=== PATIENT | female | born 1975 | race African-American/Black ===

== ENCOUNTER 2018-10-01 13:54 | Observation (INO) | payer OTHER ==
[2018-10-01] MEDS ORDERED: IPRATROPIUM BROM 0.5MG/2.5ML ONE (14:45)
[2018-10-01] MEDS ORDERED: ALBUTEROL 2.5 MG/3 ML NEB SOL ONE (14:45)
[2018-10-01 14:46] LABS: Absolute Lymphocytes (CBC) 1.7 K/uL (0.7-4.9); Absolute Monocytes 0.6 K/uL (0.1-1.3); Absolute Neutrophil 5.5 K/uL (1.8-8.0); Basophils % 0.8 % (0-1.3); Eosinophils % 4.5 % (0-4.4); Hematocrit 39.3 % (36.0-45.0); Lymphocytes % 20.8 % (15.3-44.8); MPV 8.6 fL (7.6-11.3); Monocytes % 6.9 % (3.3-12.3); RBC Red Blood Cell Count 5.29 M/uL (3.86-4.86)
[2018-10-01 15:04] LABS: Albumin 3.2 g/dL (3.4-5.0); Bilirubin Direct 0.1 mg/dL (0-0.2); Bilirubin Total 0.4 mg/dL (0.2-1.0); Magnesium 2.2 mg/dL (1.8-2.4); Potassium 3.3 mmol/L (3.5-5.1); Protein, Total 7.7 g/dL (6.4-8.2); Troponin (Emerg Dept Use Only) 0.09 ng/mL (0.0-0.045)
--- NOTE | 2018-10-01 15:32 | RAD REPORT ---
EXAM DESCRIPTION: RAD - Chest Single View - 10/01/2018 2:32 pm CLINICAL HISTORY: Shortness of breath, chills COMPARISON: None. TECHNIQUE: AP portable chest image was obtained 1430 hours . FINDINGS: Lungs are clear. Heart and vasculature are normal. No measurable pleural effusion and no p neumothorax. No acute bony abnormality seen. No acute aortic findings suspected. IMPRESSION: No acute cardiopulmonary process.
[2018-10-01 15:56] LABS: Protime INR 1.08
[2018-10-01 16:23] LABS: Urine Blood TRACE (NEG); Urine Glucose NEGATIVE (NEG); Urine Protein 2+ (NEG); Urine Specific Gravity 1.025 (1.005-1.030)
[2018-10-01] MEDS ORDERED: LORazepam 2 MG/ML VIAL ONE (16:49)
--- NOTE | 2018-10-01 17:10 | RAD REPORT ---
EXAM DESCRIPTION: CT - Chest For Pe Angio - 10/01/2018 4:50 pm CLINICAL HISTORY: Shortness of breath, chills, cough COMPARISON: Portable chest same date TECHNIQUE: Dynamically enhanced 3 mm thick images of the chest were obtained during administration o f approximately 150mL Isovue 370 IV contrast. Coronal and oblique MIP reconstruction images were gene rated and reviewed. Exam utilizes a protocol to evaluate the pulmonary arterial tree. All CT scans are performed using dose optimization technique as appropriate and may include automated exposure control or mA/KV adjustment according to patient size. FINDINGS: Exam has inherent limitation due to the large body habitus. There is extensive pulmonary e mbolic disease present. Thrombus is present in the distal aspect of the right pulmonary artery extend ing into the right upper lobe pulmonary artery and proximal aspects of the right upper lobe segmental branches. There is additional embolic disease extending into the right middle lobe pulmonary artery with large thrombus dilating the right lower lobe pulmonary artery. Pulmonary embolic disease is pres ent in the left lower lobe pulmonary artery extending into the proximal most segmental branches. Ther e is left upper lobe pulmonary embolic disease as well. Cardiomegaly is present. No pericardial effusion. Right-sided ventricular and atrial enlargement note d. The aorta as imaged shows no acute or suspicious finding. No pulmonary hemorrhage or acute lung parenchymal process seen. No pleural effusion or pleural thicke aram. No mediastinal or hilar suspicious masses. No chest wall masses or abnormal axillary lymphadenopathy. Findings telephoned to the referring clinician 1708 hours IMPRESSION: Extensive bilateral pulmonary embolic disease involving both main pulmonary arteries and all lobar branches. No saddle embolus. No acute lung parenchymal process. Cardiomegaly is present. Exam is limited due to the very large body habitus. This may affect the extent but not existence of p ulmonary embolic disease.
--- NOTE | 2018-10-01 17:15 | EDPHYS ---
Physician Documentation [facility] Name: Caroline Huizar Age: 43 yrs Sex: Female : 1975 Arrival Date: 10/01/2018 Time: 13:59 Bed 19 Private MD: Ricky Antonio ED Physician Suresh Vieira HPI: 10/01 16:23 This 43 yrs old Black Female presents to ER via Wheelchair with complaints of Shortness kb Of Breath, Chest Pain. 16:23 The patient has shortness of breath at rest. Onset: The symptoms/episode began/occurred kb 3 day(s) ago, and became worse. Duration: The symptoms are continuous. The patient's shortness of breath is aggravated by light activity, is alleviated by nothing. Associated signs and symptoms: Pertinent positives: chest pain, Pertinent negatives: non-productive cough, productive cough, diaphoresis, dizziness, fever, hemoptysis, loss of consciousness, nausea, numbness in extremities, visual changes, vomiting. Severity of symptoms: At their worst the symptoms were moderate in the emergency department the symptoms are unchanged. The patient has not experienced similar symptoms in the past. The patient has not recently seen a physician. Pt reports shortness of breath and chest tightness that started 3 days ago and has progressively gotten worse. . 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 - Social history:: Smoking status: Patient/guardian denies using tobacco. - Ebola Screening: : No symptoms or risks identified at this time. ROS: 16:22 Constitutional: Negative for fever, chills, and weight loss, Neck: Negative for injury, kb pain, and swelling, Abdomen/GI: Negative for abdominal pain, nausea, vomiting, diarrhea, and constipation, Back: Negative for injury and pain, MS/Extremity: Negative for injury and deformity, Skin: Negative for injury, rash, and discoloration, Neuro: Negative for headache, weakness, numbness, tingling, and seizure. 16:22 Cardiovascular: Positive for chest pain, Negative for edema, orthopnea, palpitations, paroxysmal nocturnal dyspnea. 16:22 Respiratory: Positive for shortness of breath, Negative for cough, dyspnea on exertion, hemoptysis, orthopnea, pleurisy, sputum production, wheezing. Exam: 16:21 Constitutional: This is a well developed, well nourished patient who is awake, alert, kb and in no acute distress. Head/Face: Normocephalic, atraumatic. Chest/axilla: Normal chest wall appearance and motion. Nontender with no deformity. No lesions are appreciated. Cardiovascular: Regular rate and rhythm with a normal S1 and S2. No gallops, murmurs, or rubs. Normal PMI, no JVD. No pulse deficits. Abdomen/GI: Soft, non-tender, with normal bowel sounds. No distension or tympany. No guarding or rebound. No evidence of tenderness throughout. Back: No spinal tenderness. No costovertebral tenderness. Full range of motion. Skin: Warm, dry with normal turgor. Normal color with no rashes, no lesions, and no evidence of cellulitis. MS/ Extremity: Pulses equal, no cyanosis. Neurovascular intact. Full, normal range of motion. Neuro: Awake and alert, GCS 15, oriented to person, place, time, and situation. Cranial nerves II-XII grossly intact. Motor strength 5/5 in all extremities. Sensory grossly intact. Cerebellar exam normal. Normal gait. 16:21 Respiratory: mild respiratory distress is noted, Respirations: labored breathing, that is mild, Breath sounds: are clear throughout. 16:48 ECG was reviewed by the Attending Physician. kb Vital Signs: 14:04 BP 136 / 72; Pulse 119; Resp 20; Temp 97.8; Pulse Ox 95% on R/A; Weight 154.22 kg; hb Height 5 ft. 6 in. (167.64 cm); Pain 9/10; 15:00 BP 119 / 106; Pulse 108; Resp 18; Pulse Ox 99% on R/A; em 17:00 BP 145 / 119; Pulse 114; Resp 24; Pulse Ox 99% on 2 lpm NC; em 18:43 BP 109 / 82; Pulse 112; Resp 28; Temp 99.4(O); Pulse Ox 100% on 2 lpm NC; em 19:36 BP 125 / 85; Pulse 110; Resp 24; Pulse Ox 99% on 2 lpm NC; mt 14:04 Body Mass Index 54.88 (154.22 kg, 167.64 cm) hb MDM: 14:11 Patient medically screened. kb 16:22 Data reviewed: vital signs, nurses notes. Data interpreted: Pulse oximetry: on room air kb is 99 %. Interpretation: normal. 16:23 The patient's pulmonary embolism risk score was calculated as follows: the patients kb heart rate is greater than 100 beats per minute (1.5 Pts) Total Score: 0-2 points. This patient was found to be at low risk for a pulmonary embolism by using the Well's assessment criteria. 17:13 Counseling: I had a detailed discussion with the patient and/or guardian regarding: the kb historical points, exam findings, and any diagnostic results supporting the discharge/admit diagnosis, lab results, radiology results, the need for further work-up and treatment in the hospital. Physician consultation: Stacey Antonio MD was contacted at 17:13, regarding admission, to the ICU, patient's condition, and will see patient in ED, shortly. 10/01 14:15 Order name: Basic Metabolic Panel kb 10/01 14:15 Order name: CBC with Diff; Complete Time: 14:58 kb 10/01 14:15 Order name: LFT's; Complete Time: 15:08 kb 10/01 14:15 Order name: Magnesium; Complete Time: 15:08 kb 10/01 14:15 Order name: NT PRO-BNP; Complete Time: 15:08 kb 10/01 14:15 Order name: PT-INR; Complete Time: 16:05 kb 10/01 14:15 Order name: Troponin (emerg Dept Use Only); Complete Time: 15:08 kb 10/01 14:15 Order name: XRAY Chest (1 view); Complete Time: 15:35 kb 10/01 14:15 Order name: D-Dimer; Complete Time: 16:05 kb 10/01 14:17 Order name: Basic Metabolic Panel; Complete Time: 15:08 EDMS 10/01 15:10 Order name: CT Chest For PE Angio; Complete Time: 17:11 kb 10/01 15:44 Order name: Urine Dipstick--Ancillary (enter results); Complete Time: 16:24 ag 10/01 15:44 Order name: Urine --Ancillary (enter results); Complete Time: 16:24 ag 10/01 17:28 Order name: Echo with Doppler EDMS 10/01 14:15 Order name: EKG; Complete Time: 14:19 kb 10/01 14:15 Order name: Cardiac monitoring; Complete Time: 14:36 kb 10/01 14:15 Order name: EKG - Nurse/Tech; Complete Time: 14:24 kb 10/01 14:15 Order name: IV Saline Lock; Complete Time: 14:24 kb 10/01 14:15 Order name: Labs collected and sent; Complete Time: 14:24 kb 10/01 14:15 Order name: O2 Per Protocol; Complete Time: 14:24 kb 10/01 14:15 Order name: O2 Sat Monitoring; Complete Time: 14:24 kb 10/01 17:28 Order name: CONS Physician Consult EDMS EC:48 Rate is 110 beats/min. Rhythm is regular, Sinus tachycardia. QRS [place] is Normal. MS kb interval is normal at 142 msec. QRS interval is normal at 82 msec. QT interval is normal at 358 msec. Interpreted by me. Reviewed by me. Administered Medications: 14:34 Drug: AtroVENT Aerosol 0.5 mg Route: Inhalation; em 14:34 Drug: Albuterol 2.5 mg Route: Inhalation; em 15:00 Follow up: Response: No adverse reaction em 16:42 CANCELLED (Other Intervention Used): Ativan 1 mg IM once kb 16:45 Drug: Ativan 1 mg Route: IVP; Site: right antecubital; ss 16:50 Follow up: Response: No adverse reaction; Marked relief of symptoms em 17:23 Not Given (Cancelled pt mary Jenkins lovenox instead): Heparin (DVT/PE- Bolus per kb protocol) - HEParin 80 units/kg IVP once; Max 8,000 units 17:24 Not Given (cancelled per mary Jenkins lovenox instead): Heparin (DVT/PE Drip) 18 kb units/kg/hr - (HEParin 04450 units, D5W 500 ml) IV at calculated rate Per protocol; Max initial rate 1800 units/hr 17:40 Drug: Lovenox 1 mg/kg {Note: 100 mg in right lower abdomen, 50 in left lower abdomen, tw2 150 mg max per Pharmacy.} Route: Sub-Q; Site: left lower abdomen; 19:51 Follow up: Response: No adverse reaction; No change in condition tl1 Disposition: 10/01/18 17:14 Hospitalization ordered by Stacey Antonio for Inpatient Admission. Preliminary diagnosis are Pulmonary embolism, Chest pain, unspecified, Dyspnea, Elevated troponin. - Bed requested for Telemetry/MedSurg (Inpatient). - Status is Inpatient Admission. tl1 - Condition is Stable. - Problem is new. - Symptoms are unchanged. UTI on Admission? No Addendum: 10/03/2018 19:03 Co-signature as Attending Physician, Suresh Vieira MD. r n Signatures: Dispatcher [employer] EDMS Sulema Henson, PHILIPP-C PRINTING MECHANIST-Priscila Capps, RN RN Kareem Seay, SATELLITE DISH TECHNICIAN SATELLITE DISH TECHNICIAN Suresh Nunez MD MD rn Smirch, Shelby RN RN Meredith Toscano RN RN tl1 Cary Lopez RN RN Winifred Jorge RN RN tw2 Corrections: (The following items were deleted from the chart) 10/01 16:42 16:42 Ativan 1 mg IM once ordered. kb kb 18:30 17:14 Hospitalization Ordered by Stacey Antonio MD for Inpatient Admission. Preliminary dw diagnosis is Pulmonary embolism; Chest pain, unspecified; Dyspnea; Elevated troponin. Bed requested for Intensive Care Unit. Status is Inpatient Admission. Condition is Stable. Problem is new. Symptoms are unchanged. UTI on Admission? No. kb 19:17 18:30 10/01/2018 17:14 Hospitalization Ordered by Stacey Antonio MD for Inpatient dw Admission. Preliminary diagnosis is Pulmonary embolism; Chest pain, unspecified; Dyspnea; Elevated troponin. Bed requested for Intensive Care Unit. Status is Inpatient Admission. Condition is Stable. Problem is new. Symptoms are unchanged. UTI on Admission? No. dw 19:23 19:17 10/01/2018 17:14 Hospitalization Ordered by Stacey Antonio MD for Inpatient dw Admission. Preliminary diagnosis is Pulmonary embolism; Chest pain, unspecified; Dyspnea; Elevated troponin. Bed requested for Telemetry/MedSurg (Inpatient). Status is Inpatient Admission. Condition is Stable. Problem is new. Symptoms are unchanged. UTI on Admission? No. dw 20:02 19:23 10/01/2018 17:14 Hospitalization Ordered by Stacey Antonio MD for Inpatient tl1 Admission. Preliminary diagnosis is Pulmonary embolism; Chest pain, unspecified; Dyspnea; Elevated troponin. Bed requested for Telemetry/MedSurg (Inpatient). Status is Inpatient Admission. Condition is Stable. Problem is new. Symptoms are unchanged. UTI on Admission? No. dw
--- NOTE | 2018-10-01 17:15 | ER ---
Nurse's Notes [facility] Name: Caroline Huizar Age: 43 yrs Sex: Female : 1975 Arrival Date: 10/01/2018 Time: 13:59 Bed 19 Private MD: Ricky Antonio Diagnosis: Pulmonary embolism;Chest pain, unspecified;Dyspnea;Elevated troponin Presentation: 10/01 14:03 Presenting complaint: SOB, chills, and nonproductive cough x 3 days. Transition of hb care: patient was not received from another setting of care. Onset of symptoms was September 28, 2018. Risk Assessment: Do you want to hurt yourself or someone else? Patient reports no desire to harm self or others. Care prior to arrival: None. 14:03 Method Of Arrival: Wheelchair hb 14:03 Acuity: RM 3 hb 16:33 Initial Sepsis Screen: Does the patient meet any 2 criteria? HR > 90 bpm. Does the em patient have a suspected source of infection? No. Patient's initial sepsis screen is negative. Triage Assessment: 19:46 General: Appears distressed, uncomfortable, obese, Behavior is cooperative, appropriate tl1 for age, anxious. EENT: No signs and/or symptoms were reported regarding the EENT system. Neuro: Level of Consciousness is awake, alert, obeys commands, Oriented to person, place, time, situation. Cardiovascular: Reports chest pain, shortness of breath, Rhythm is sinus tachycardia. 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 Respiratory: Reports shortness of breath at rest. GI: Abdomen is non-distended, obese, Bowel sounds present X 4 quads. Abd is soft and non tender X 4 quads. : No signs and/or symptoms were reported regarding the genitourinary system. Derm: No signs and/or symptoms reported regarding the dermatologic system. Musculoskeletal: No signs and/or symptoms reported regarding the musculoskeletal system. 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 - Social history:: Smoking status: Patient/guardian denies using tobacco. - Ebola Screening: : No symptoms or risks identified at this time. Screenin:30 Abuse screen: Denies threats or abuse. Nutritional screening: No deficits noted. em Tuberculosis screening: No symptoms or risk factors identified. Fall Risk None identified. Assessment: 14:30 General: Appears in no apparent distress. uncomfortable, Behavior is calm, cooperative, em Reports feeling ill for 2-3 days. Pain: Complains of pain in chest Pain currently is 9 out of 10 on a pain scale. Cardiovascular: Reports chest pain, Heart tones S1 S2 present Capillary refill < 3 seconds Patient's skin is warm and dry. Rhythm is sinus tachycardia. Respiratory: Reports shortness of breath on exertion Airway is patent Respiratory effort is even, Respiratory pattern is regular, symmetrical, Breath sounds are clear bilaterally. GI: Abdomen is obese, Patient currently denies nausea, vomiting. EENT: Reports nasal discharge. Derm: Skin is intact, is healthy with good turgor, Skin is pink, warm \T\ dry. Musculoskeletal: Capillary refill < 3 seconds, Range of motion: intact in all extremities. 14:35 Reassessment: The previous assessment is accurate, call light remains within reach. ss 15:35 Reassessment: Patient appears in no apparent distress at this time. Patient and/or em family updated on plan of care and expected duration. Pain level reassessed. Patient is alert, oriented x 3, equal unlabored respirations, skin warm/dry/pink. 16:45 Reassessment: Pt in CT at this time, Ativan 1 mg ordered and administered while patient ss is in CT as she reports anxiety about having the testing done, and difficult breathing while laying flat. Pt is thankful, respirations noted to be even and unlabored. 17:44 Reassessment: Patient appears in no apparent distress at this time. Patient and/or em family updated on plan of care and expected duration. Pain level reassessed. Patient is alert, oriented x 3, equal unlabored respirations, skin warm/dry/pink. Dr. Antonio at bedside. 18:10 Reassessment: Patient appears in no apparent distress at this time. Patient and/or em family updated on plan of care and expected duration. Pain level reassessed. Patient is alert, oriented x 3, equal unlabored respirations, skin warm/dry/pink. will go to ICU after shift change. Vital Signs: 14:04 BP 136 / 72; Pulse 119; Resp 20; Temp 97.8; Pulse Ox 95% on R/A; Weight 154.22 kg; hb Height 5 ft. 6 in. (167.64 cm); Pain 9/10; 15:00 BP 119 / 106; Pulse 108; Resp 18; Pulse Ox 99% on R/A; em 17:00 BP 145 / 119; Pulse 114; Resp 24; Pulse Ox 99% on 2 lpm NC; em 18:43 BP 109 / 82; Pulse 112; Resp 28; Temp 99.4(O); Pulse Ox 100% on 2 lpm NC; em 19:36 BP 125 / 85; Pulse 110; Resp 24; Pulse Ox 99% on 2 lpm NC; mt 14:04 Body Mass Index 54.88 (154.22 kg, 167.64 cm) hb ED Course: 13:59 Patient arrived in ED. mr 13:59 Ricky Antonio DO is Private Physician. mr 14:04 Triage completed. hb 14:05 Arm band placed on. hb 14:11 Sulema Henson FNP-C is PHCP. kb 14:11 Suresh Vieira MD is Attending Physician. kb 14:16 Kareem Seay LVN is Primary Nurse. em 14:20 Inserted saline lock: 22 gauge in right antecubital area, using aseptic technique. tw2 Blood collected. 14:27 EKG done, by ED staff, reviewed by Sulema BRIGHT. jb1 14:30 Patient has correct armband on for positive identification. Bed in low position. Call em light in reach. Adult w/ patient. variety lathe operator on. Pulse ox on. NIBP on. 14:34 XRAY Chest (1 view) In Process Unspecified. EDMS 16:51 CT Chest For PE Angio In Process Unspecified. EDMS 17:14 Ricky Antonio DO is Hospitalizing Provider. kb 17:14 Stacey Antonio MD is Hospitalizing Provider. kb 19:45 No provider procedures requiring assistance completed. Patient admitted, IV remains in tl1 place. Oxygen administration via nasal cannula \T\ 2L/min. Administered Medications: 14:34 Drug: AtroVENT Aerosol 0.5 mg Route: Inhalation; em 14:34 Drug: Albuterol 2.5 mg Route: Inhalation; em 15:00 Follow up: Response: No adverse reaction em 16:42 CANCELLED (Other Intervention Used): Ativan 1 mg IM once kb 16:45 Drug: Ativan 1 mg Route: IVP; Site: right antecubital; ss 16:50 Follow up: Response: No adverse reaction; Marked relief of symptoms em 17:23 Not Given (Cancelled pt mary Jenkins lovenox instead): Heparin (DVT/PE- Bolus per kb protocol) - HEParin 80 units/kg IVP once; Max 8,000 units 17:24 Not Given (cancelled per mary Jenkins loveedwige instead): Heparin (DVT/PE Drip) 18 kb units/kg/hr - (HEParin 58584 units, D5W 500 ml) IV at calculated rate Per protocol; Max initial rate 1800 units/hr 17:40 Drug: Lovenox 1 mg/kg {Note: 100 mg in right lower abdomen, 50 in left lower abdomen, tw2 150 mg max per Pharmacy.} Route: Sub-Q; Site: left lower abdomen; 19:51 Follow up: Response: No adverse reaction; No change in condition tl1 Outcome: 17:14 Decision to Hospitalize by Provider. kb 19:50 Admitted to Tele accompanied by tech, via stretcher, with oxygen, Report called to tl1 Rain DELGADO 19:50 Condition: unchanged 19:50 Instructed on the need for admit. 20:02 Patient left the ED. tl1 Signatures: Dispatcher [employer] EDJohny Aviles jb1 Sulema Henson, PNEUMATIC TUBE OPERATOR-C PNEUMATIC TUBE OPERATOR-Ckb Nasrin RaiKareem, DRYWALL PROFESSIONAL DRYWALL PROFESSIONAL em Citlalli Velásquez RN RN Meredith Toscano RN RN tl1 Cary Lopez RN RN hb Wise, Tara, RN RN tw2 Lizzeth Orta mo Corrections: (The following items were deleted from the chart) 14:06 14:04 BP 136 / 72; Pulse 119bpm; Resp 20bpm; Pulse Ox 94% RA; Temp 97.8F; 154.22 kg; hb Height 5 ft. 6 in.; BMI: 54.8; Pain 9/10; hb 19:39 19:36 BP 103 / 84; Pulse 110bpm; Resp 24bpm; Pulse Ox 99% 2 lpm Nasal Cannula; mt mt
[2018-10-01] MEDS ORDERED: HEPARIN/D5W 0 UNIT/0 ML BAG IV ONE (17:34)
[2018-10-01] MEDS ORDERED: HEPARIN 5000 UNIT/ML 1 ML VIAL ONE (17:34)
[2018-10-01] MEDS ORDERED: ENOXAPARIN 100 MG/ML SYR SQ ONE (17:42)
[2018-10-01] MEDS ORDERED: ENOXAPARIN 60 MG/0.6 ML SQ ONE (17:42)
--- NOTE | 2018-10-01 18:01 | P.HP ---
Certification for Inpatient Patient admitted to: Inpatient With expected LOS: >2 Midnights Patient will require the following post-hospital care: None Practitioner: I am a practitioner with admitting privileges, knowledge of patient current condition, hospital course, and medical plan of care. Services: Services provided to patient in accordance with Admission requirements found in Title 42 Section 412.3 of the Code of Federal Regulations Patient History Date of Service: 10/01/18 Primary Care Provider: Dr Antonio Reason for admission: Sob and Chest Pain History of Present Illness: This is a 43-year-old female with no significant past medical history who presented to the ED complaining of having some chest pain and shortness of breath. Patient stated that she started having some shortness of breath for past couple of days and got progressively worse and thus she decided to come to the ER. Patient also stated that she has been having some fever and chills for past couple of days as well. Patient has noted low-grade fever at home and chills at night time. Patient denies having any similar symptoms in the past. Denies traveling long distance at this time. Also denies smoking or alcohol. Patient states that she does take Depo-Provera for control and was released from [facility] about 9 months ago after which she has noticed that she has gained some weight being at home. Patient also complains of having bilateral lower leg swelling that is intermittent. Patient noted that she has been having some pain in her lower extremities for past couple of months however it comes and goes and does not stay for a long . In the ER patient was seen by labs and imaging were done. Imaging was consistent with bilateral multiple pulmonary embolism along with lab work that was consistent with elevated troponin and BNP. Patient thus was admitted to the hospital for further workup. Patient initially was tachypneic and short of breath. Home medications list reviewed: Yes - Past Medical/Surgical History Has patient received pneumonia vaccine in the past: No Diabetic: No Past Medical History: Patient denies medical history Past Surgical History: Patient denies surgical history - Family History Family History: Reviewed- Non-Contributory - Social History Smoking Status: Never smoker Counseled patient to stop smoking for: more than 10 minutes Smoking therapy provided: Yes Patient receptive to therapy: Yes Alcohol use: No CD- Drugs: No Caffeine use: No Place of Residence: Home Review of Systems 10-point ROS is otherwise unremarkable Physical Examination - Physical Exam General: Alert, Mild distress, Obese HEENT: Atraumatic, PERRLA, Mucous membr. moist/pink, EOMI, Sclerae nonicteric Neck: Supple, 2+ carotid pulse no bruit, No LAD, Without JVD or thyroid abnormality Respiratory: Normal air movement, Rhonchi/gurgles Cardiovascular: Regular rate/rhythm, Normal S1 S2 Gastrointestinal: Normal bowel sounds, No tenderness Musculoskeletal: No tenderness, Swelling (2+ bilateral lower extremity pedal edema) Integumentary: No rashes Neurological: Normal speech, Normal strength at 5/5 x4 extr, Normal tone Lymphatics: No axilla or inguinal lymphadenopathy - Studies Laboratory Data (last 24 hrs) 10/01/18 14:24: PT 12.7 H, INR 1.08 10/01/18 14:24: WBC 8.2, Hgb 12.6, Hct 39.3, Plt Count 283 10/01/18 14:24: Sodium 138, Potassium 3.3 L, BUN 18, Creatinine 0.96, Glucose 144 H, Magnesium 2.2, Total Bilirubin 0.4, AST 18, ALT 22, Alkaline Phosphatase 77 Assessment and Plan - Problems (Diagnosis) (1) Pulmonary embolism Current Visit: Yes Status: Acute Plan: Acute pulmonary embolism bilaterally multiple on the CT scan with complaints of tachypnea and orthopnea -denies history of travel does take Depo-Provera and obesity which increases the risk factors for pulmonary embolism -initially was hemodynamically stable however elevated BNP along with troponin concerning for right-sided heart strain -will start patient on weight based Lovenox at this time q 12 hr -will get echocardiogram and pulmonology consult -will also get coagulable workup to rule out any other etiology -will also get bilateral lower extremity ultrasound Qualifiers: Pulmonary embolism type: other Chronicity: acute (2) Elevation of cardiac enzymes Current Visit: Yes Status: Acute Plan: Patient with elevated cardiac enzymes troponin is 0.09 along with elevated BNP -could be concerning for right sided heart failure with bilateral lower extremity edema -will consult cardiology at this time -will wait for echocardiogram results to start patient on Lasix (3) Obesity Current Visit: Yes Status: Acute Plan: Diet and exercise. Educated extensively on the risk factors associated with obesity Qualifiers: Obesity type: due to excess calories Obesity classification: adult class 3 (BMI >= 40) Serious obesity comorbidity presence: unspecified whether serious comorbidity present Body mass index: BMI 60.0-69.9 Qualified Code(s): E66.01 - Morbid (severe) obesity due to excess calories; Z68.44 - Body mass index (BMI) 60.0-69.9, adult - Advance Directives Does patient have a Living Will: No Does patient have a Durable POA for Healthcare: No
[2018-10-01] MEDS ORDERED: ONDANSETRON 4 MG/2 ML VIAL IV PRN (19:56)
[2018-10-01] MEDS ORDERED: ENOXAPARIN 100 MG/ML SYR SQ SCH (21:00)
[2018-10-01] MEDS ORDERED: LORazepam 2 MG/ML VIAL IV PRN (22:56)
[2018-10-02 00:20] VITALS: BMI 64.8
[2018-10-02 04:31] LABS: Absolute Lymphocytes (CBC) 2.3 K/uL (0.7-4.9); Absolute Monocytes 0.7 K/uL (0.1-1.3); Absolute Neutrophil 5.5 K/uL (1.8-8.0); Basophils % 0.7 % (0-1.3); Eosinophils % 1.4 % (0-4.4); Hematocrit 35.7 % (36.0-45.0); Lymphocytes % 26.4 % (15.3-44.8); MPV 8.9 fL (7.6-11.3); Monocytes % 8.4 % (3.3-12.3); RBC Red Blood Cell Count 4.84 M/uL (3.86-4.86)
[2018-10-02 04:48] LABS: Albumin 2.9 g/dL (3.4-5.0); Bilirubin Total 0.3 mg/dL (0.2-1.0); Potassium 3.3 mmol/L (3.5-5.1); Protein, Total 7.4 g/dL (6.4-8.2); Troponin I 0.08 ng/mL (0.0-0.045)
[2018-10-02] MEDS ORDERED: POTASSIUM 25 MEQ EFFERV TAB PO ONE (05:36)
[2018-10-02] MEDS ORDERED: ENOXAPARIN 80 MG/0.8 ML SQ ONE (06:00)
[2018-10-02] MEDS ORDERED: ENOXAPARIN 80 MG/0.8 ML SQ SCH ×2 (06:00→18:00)
--- NOTE | 2018-10-02 07:18 | RAD REPORT ---
EXAM DESCRIPTION: US - Extrem Venous W Compress Kan - 10/01/2018 11:15 pm CLINICAL HISTORY: Bilateral leg pain and swelling COMPARISON: None. TECHNIQUE: Real-time sonographic evaluation of the bilateral lower extremity common femoral, superfi cial femoral, popliteal and posterior tibial veins was performed. FINDINGS: Normal compressibility, flow augmentation, phasic flow and spontaneous flow are identified in the left and right lower extremity common femoral, superficial femoral, popliteal and posterior t ibial veins. No intraluminal filling defects seen. IMPRESSION: No DVT in either lower extremity.
--- NOTE | 2018-10-02 09:56 | EKG ---
Test Date: 2018-10-01 Test Time: 14:23:37 Car Whacker: GAGAN MEASUREMENT RESULTS: Intervals: Rate: 110 UT: 142 QRSD: 82 QT: 358 QTc: 484 [place]: P: 55 UT: 142 QRS: 0 T: 6 INTERPRETIVE STATEMENTS: Sinus tachycardia Possible Anterior infarct, age undetermined Abnormal ECG No previous ECG available for comparison Electronically Signed On 10-02-18 09:54:56 CDT by Maurisio Huizar
--- NOTE | 2018-10-02 09:59 | P.DS ---
Admission Date: 10/01/18 Discharge Date: 10/02/18 Primary Care Provider: Dr. Ricky Antonio Disposition: ROUTINE DISCHARGE Discharge Condition: GOOD Reason for Admission: Sob and Chest Pain Consultations: Pulmonary-Dr. Salmeron Cardiology-Dr. Huizar Procedures: Venous Doppler: COMPARISON: None. TECHNIQUE: Real-time sonographic evaluation of the bilateral lower extremity common femoral, superficial femoral, popliteal and posterior tibial veins was performed. FINDINGS: Normal compressibility, flow augmentation, phasic flow and spontaneous flow are identified in the left and right lower extremity common femoral, superficial femoral, popliteal and posterior tibial veins. No intraluminal filling defects seen. IMPRESSION: No DVT in either lower extremity. CT chest: FINDINGS: Exam has inherent limitation due to the large body habitus. There is extensive pulmonary embolic disease present. Thrombus is present in the distal aspect of the right pulmonary artery extending into the right upper lobe pulmonary artery and proximal aspects of the right upper lobe segmental branches. There is additional embolic disease extending into the right middle lobe pulmonary artery with large thrombus dilating the right lower lobe pulmonary artery. Pulmonary embolic disease is present in the left lower lobe pulmonary artery extending into the proximal most segmental branches. There is left upper lobe pulmonary embolic disease as well. Cardiomegaly is present. No pericardial effusion. Right-sided ventricular and atrial enlargement noted. The aorta as imaged shows no acute or suspicious finding. No pulmonary hemorrhage or acute lung parenchymal process seen. No pleural effusion or pleural thickening. No mediastinal or hilar suspicious masses. No chest wall masses or abnormal axillary lymphadenopathy. IMPRESSION: Extensive bilateral pulmonary embolic disease involving both main pulmonary arteries and all lobar branches. No saddle embolus. No acute lung parenchymal process. Cardiomegaly is present. Exam is limited due to the very large body habitus. This may affect the extent but not existence of pulmonary embolic disease. Medical Problem List: Chest pain and shortness of breath secondary to acute bilateral extensive pulmonary emboli involving main pulmonary arteries and all lobar branches with noted elevation of Troponin Hypertension Depression Seasonal Allergic rhinitis History of control medication use Suspect obstructive sleep apnea Obesity, BMI 64.9 Brief History of Present Illness: 43-year-old female presented to the emergency room with increasing chest pain and shortness of breath. Symptoms have been present for several days. She reported some fever and chills. She denied any long- distance travel, tobacco or alcohol use. Patient takes Depo-Provera for control. Patient also had bilateral lower extremity edema intermittently. In the ER patient evaluated. Patient found to have bilateral extensive pulmonary emboli. Patient was tachypneic and shortness of breath and required hospitalization. Hospital Course: Patient presented with chest pain, shortness of breath and intermittent edema to the lower extremity. Patient found to have acute bilateral extensive pulmonary emboli involving the main pulmonary arteries and all lobar branches. No saddle emboli was noted. Patient was admitted for further evaluation and treatment. Slight elevation in troponin was noted. This was likely related to pulmonary embolism. Patient improved with Lovenox. Patient seen and evaluated by pulmonology and Cardiology. Echocardiogram obtained. During the course of her stay her condition improved. She is without any significant shortness of breath at discharge. She did not require any oxygen at discharge. At discharge she will continue with Eliquis 10 mg twice daily for 7 days then 5 mg twice daily indefinitely as recommended by pulmonology. It was also recommended that Depo-Provera be discontinued. Anti coagulable workup obtain. This can be followed up by her PCP or pulmonology. Recommend to follow up with pulmonology in 2-4 weeks to follow up this hospitalization. Recommend a follow up with her PCP in 1 week to follow up this hospitalization. Patient with history of hypertension. Blood pressures have remained stable. Patient takes Diovan 320 mg daily. She is to hold medication if blood pressure systolic less than 120. Further adjustment in medication may be required. This can be done with the help of her PCP. Patient with depression. Patient will continue with Zoloft 100 mg daily. Further monitoring and adjustment can be done by her PCP. Patient with chronic allergic rhinitis. She may continue with Claritin 10 mg daily. Patient may have underlying obstructive sleep apnea. Recommend to follow up with pulmonology to further evaluate. Patient should have sleep study done as an outpatient to further address. Lifestyle modification education will be provided. Patient had hypokalemia. This was replaced during her stay. Recommend to recheck BMP in 1 week to follow her progress. Vital Signs/Physical Exam: Temp Pulse Resp BP Pulse Ox 97.9 F 105 H 18 122/88 94 10/02/18 08:00 10/02/18 08:00 10/02/18 08:00 10/02/18 08:00 10/02/18 08:00 General: Alert, In no apparent distress, Oriented x3, Cooperative HEENT: Atraumatic Neck: Supple Respiratory: Clear to auscultation bilaterally, Normal air movement Cardiovascular: Normal pulses, Regular rate/rhythm Gastrointestinal: Normal bowel sounds, Soft and benign, Non-distended, No tenderness, No masses, No rebound, No guarding Musculoskeletal: No erythema, No tenderness, No warmth Integumentary: No tenderness/swelling, No erythema, No warmth, No cyanosis Neurological: Normal speech, Normal strength at 5/5 x4 extr, Normal tone, Normal affect Laboratory Data at Discharge: WBC 8.8 K/uL (4.3-10.9) 10/02/18 03:38 Hgb 11.6 g/dL (12.0-15.0) L 10/02/18 03:38 Hct 35.7 % (36.0-45.0) L 10/02/18 03:38 Plt Count 278 K/uL (152-406) 10/02/18 03:38 PT 12.7 SECONDS (9.5-12.5) H 10/01/18 14:24 INR 1.08 10/01/18 14:24 Sodium 140 mmol/L (136-145) 10/02/18 03:38 Potassium 3.3 mmol/L (3.5-5.1) L 10/02/18 03:38 BUN 17 mg/dL (7-18) 10/02/18 03:38 Creatinine 0.93 mg/dL (0.55-1.3) 10/02/18 03:38 Glucose 136 mg/dL (74-106) H 10/02/18 03:38 Phosphorus 3.0 mg/dL (2.5-4.9) 10/02/18 03:38 Magnesium 2.2 mg/dL (1.8-2.4) 10/01/18 14:24 Total Bilirubin 0.3 mg/dL (0.2-1.0) 10/02/18 03:38 AST 15 U/L (15-37) 10/02/18 03:38 ALT 18 U/L (12-78) 10/02/18 03:38 Alkaline Phosphatase 70 U/L (45-117) 10/02/18 03:38 Troponin I Cancelled 10/02/18 06:00 Home Medications: Apixaban [Eliquis] 5 mg PO SEECOM #70 tablet 10/02/18 Loratadine [Claritin*] 10 mg PO DAILY 10/02/18 Sertraline [Zoloft*] 100 mg PO DAILY 10/02/18 Valsartan [Diovan*] 320 mg PO DAILY 10/02/18 New Medications: Apixaban [Eliquis] 5 mg PO SEECOM #70 tablet Patient Discharge Instructions: 1. Recommend follow up with her PCP in 1 week to follow up this hospitalization. 2. Patient presented with chest pain, shortness of breath and intermittent edema to the lower extremity. Patient found to have acute bilateral extensive pulmonary emboli involving the main pulmonary arteries and all lobar branches. No saddle emboli was noted. Patient was admitted for further evaluation and treatment. During the course of her stay her condition improved. She is without any significant shortness of breath at discharge. She did not require any oxygen at discharge. At discharge she will continue with Eliquis 10 mg twice daily for 7 days then 5 mg twice daily indefinitely as recommended by pulmonology. It was also recommended that Depo-Provera be discontinued. Anti coagulable workup obtain. This can be followed up by her PCP or pulmonology. Recommend to follow up with pulmonology in 2-4 weeks to follow up this hospitalization. Recommend a follow up with her PCP in 1 week to follow up this hospitalization. 3. Patient with history of hypertension. Blood pressures have remained stable. Patient takes Diovan 320 mg daily. She is to hold medication if blood pressure systolic less than 120. Further adjustment in medication may be required. This can be done with the help of her PCP. 4. Patient with depression. Patient will continue with Zoloft 100 mg daily. Further monitoring and adjustment can be done by her PCP. 5. Patient with chronic allergic rhinitis. She may continue with Claritin 10 mg daily. 6. Patient may have underlying obstructive sleep apnea. Recommend to follow up with pulmonology to further evaluate. Patient should have sleep study done as an outpatient to further address. Lifestyle modification education will be provided. 7. Patient had hypokalemia. This was replaced during her stay. Recommend to recheck BMP in 1 week to follow up. Diet: AHA Activity: Ad nadir Time spent managing pt's care (in minutes): 55
--- NOTE | 2018-10-02 11:43 | P.CNS ---
Date of Consult: 10/02/18 Primary Care Provider: Dr. Ricky Antonio Chief Complaint: Pulmonary embolism History of Present Illness: Patient is 43 years of age admitted to the hospital with pulmonary embolism she developed sudden onset of shortness of breath, diaphoresis and fainting spell duration 3 days was found to have bilateral pulmonary embolism no history of thromboemboli in no lower extremity DVT patient has not had any surgeries or been sick recently denies any cough fever chills planing of some chest discomfort patient does not smoke Allergies naproxen Adverse Reaction (Verified 10/01/18 20:16) Shortness of breath Home Medications: Apixaban [Eliquis] 5 mg PO SEECOM #70 tablet 10/02/18 Loratadine [Claritin*] 10 mg PO DAILY 10/02/18 Sertraline [Zoloft*] 100 mg PO DAILY 10/02/18 Valsartan [Diovan*] 320 mg PO DAILY 10/02/18 - Past Medical/Surgical History Diabetic: No -: HTN -: Anxiety -: Depression -: Sleep Apnea -: GOUT -: [place] - Social History Smoking Status: Never smoker Alcohol use: No CD- Drugs: Yes Caffeine use: Yes Place of Residence: Home Review of Systems 10-point ROS is otherwise unremarkable General: Weakness Respiratory: Shortness of Breath Cardiovascular: Chest Pain Physical Examination Temp Pulse Resp BP Pulse Ox 97.9 F 105 H 18 122/88 94 10/02/18 08:00 10/02/18 08:00 10/02/18 08:00 10/02/18 08:00 10/02/18 08:00 General: Alert, In no apparent distress, Oriented x3 Neck: Supple Respiratory: Clear to auscultation bilaterally Cardiovascular: No edema, Normal pulses, Regular rate/rhythm Gastrointestinal: Normal bowel sounds, Soft and benign Musculoskeletal: No clubbing, No swelling Integumentary: No rashes, No breakdown Laboratory Data (last 24 hrs) 10/01/18 14:24: PT 12.7 H, INR 1.08 10/01/18 14:24: WBC 8.2, Hgb 12.6, Hct 39.3, Plt Count 283 10/01/18 14:24: Sodium 138, Potassium 3.3 L, BUN 18, Creatinine 0.96, Glucose 144 H, Magnesium 2.2, Total Bilirubin 0.4, AST 18, ALT 22, Alkaline Phosphatase 77 - Problems (1) Pulmonary embolism Current Visit: Yes Status: Acute Plan: Patient is 43 years of age admitted with the idiopathic pulmonary embolism she will need lifelong anticoagulation DT scan reviewed patient has a mild microcytic anemia blood pressure stable patient was never hypotensive oxygen saturation is over 95% on room air of discuss with the patient regarding the importance of staying on lifelong anticoagulation Qualifiers: Pulmonary embolism type: other Chronicity: acute
[2018-10-02 11:45] VITALS: O2SAT 95
[2018-10-02 12:24] VITALS: BP 124/88; TEMP 98
[2018-10-02 12:49] LABS: Ferritin 27.5 ng/mL (8-388)
--- NOTE | 2018-10-02 13:19 | CON ---
Additional Attending Physician: Dr. Antonio. Chief Complaint: Shortness of breath and chest pain. Admitting Diagnosis: Multiple pulmonary emboli, probably both acute and subacute. History Of Present Illness: The patient's symptoms are going on for a few days, perhaps longer than that. When she came to the hospital, a CT angio of the chest was done and it revealed bilateral pulm onary embolic disease, both main pulmonary arteries, all lobar branches, but no saddle embolus was pr esent. The heart and lungs appear to be okay. Her echocardiogram is pending. The patient has no pr evious history of blood clots or pulmonary emboli. She is multigravida. About 2 weeks ago she recei darion a Depo-Provera shot as a control device. She has not been particularly sedentary. No rece nt surgeries. No history of heart failure or other heart diseases. She has a longstanding history o f hypertension. She takes valsartan, sertraline, loratadine, and Depo Provera every 3 months. Allergies: SHE IS ALLERGIC TO NAPROXEN. Social History: Uses no tobacco, no alcohol, no illegal drugs. Physical Examination: Vital Signs: 5 feet 6 inches, 402 pounds. General: Obese, alert, oriented, not in distress. Lungs: Clear. Heart: Within normal limits. Abdomen: Soft. Extremities: Mild edema. Distal pulses palpable. Diagnostic Studies: Her electrocardiogram shows sinus rhythm. No significant abnormality. Her CT a ngio shows multiple pulmonary emboli. Venous Doppler study reveals no DVT. Impression: The patient has multiple pulmonary emboli, probably from leg or abdominal vein original source, although it seems to have resolved there and migrated to the lungs. Anticoagulation is the t herapy. She has an abnormal troponin, but it is barely elevated. I think we can safely attribute th at to the pulmonary emboli. Echocardiogram if that shows a wall motion abnormality, we will reconside r that. I think the main thing is to decide whether she needs 6 months of anticoagulation or chronic trying to decide if there is a hypercoagulable state or heart disease that led to her multiple pulmo nary emboli. MARIN/RAJNI Voice ID: [id number] Report ID: [id number]
--- NOTE | 2018-10-02 13:48 | ECHO ---
HEIGHT: 5 ft 6 in WEIGHT: 402 lb 0 oz DATE OF STUDY: 10/02/[address]: Raymond Martinez MD 2-DIMENSIONAL: YES M.MODE: YES DOPPLER: YES COLOR FLOW: YES TDS: NO PORTABLE: NO DEFINITY: NO BUBBLE STUDY: NO DIAGNOSIS: RIGHT VENTRICULAR STRAIN CARDIAC HISTORY: CATHERIZATION: NO SURGERY: NO PROSTHETIC VALVE: NO PACEMAKER: NO MEASUREMENTS (cm) DIASTOLIC (NORMALS) SYSTOLIC (NORMALS) IVSd 1.3 (0.6-1.2) LA Diam 3.4 (1.9-4.0) LVEF 77% LVIDd 3.2 (3.5-5.7) LVIDs 1.8 (2.0-3.5) %FS 45% LVPWd 1.3 (0.6-1.2) Ao Diam 2.7 (2.0-3.7) 2 DIMENSIONAL ASSESSMENT: RIGHT ATRIUM: DILATED LEFT ATRIUM: NORMAL RIGHT VENTRICLE: DILATED LEFT VENTRICLE: NORMAL TRICUSPID VALVE: NORMAL MITRAL VALVE: NORMAL PULMONIC VALVE: NORMAL AORTIC VALVE: NORMAL PERICARDIAL EFFUSION: NONE AORTIC ROOT: NORMAL LEFT VENTRICULAR WALL MOTION: PARADOXICAL SEPTAL MOTION SEEN WITH RIGHT VENTRICULAR PRESSURE OVERLOAD. DOPPLER/COLOR FLOW: MILD TRICUSPID REGURGITATION. SEVERE PULMONARY HYPERTENSION. ESTIMATED RIGHT VENTRICULAR SYSTOLIC PRESSURE 77mmHg. COMMENTS: NORMAL LEFT VENTRICULAR EJECTION FRACTION. PARADOXICAL SEPTAL MOTION. DILATED RIGHT ATRIUM AND VENTRICLE. MILD TRICUSPID REGURGITATION. SEVERE PULMONARY HYPERTENSION. TECHNOLOGIST: LIDA DUPONT
[2018-10-02] MEDS ORDERED: ENOXAPARIN 100 MG/ML SYR SQ SCH (18:00)
[2018-10-03] MEDS ORDERED: VALSARTAN 80 MG TAB PO SCH (09:00)
[2018-10-03] MEDS ORDERED: SERTRALINE HCL 100 MG TAB PO SCH (09:00)
[2018-10-03] MEDS ORDERED: LORATADINE 10 MG TAB PO SCH (09:00)
[2018-10-04 10:52] LABS: Anti-Cardiolipin IgA Antibody <11 APL (<=11)
[2018-10-05 13:47] LABS: Protein C Antigen 50 % (70-140)
== END 2018-10-02 12:51 | disposition home or self-care (01) ==
LOC: ER 13:54 → ERHOLD 17:25 → INTOOBSV 17:25 → 4TH 19:48
PROVIDERS: ADMIT Family Medicine; ATTEND Family Medicine
DX: I26.99 Other pulmonary embolism without acute cor pulmonale (principal); I10 Essential (primary) hypertension; F32.9 Major depressive disorder, single episode, unspecified; J30.9 Allergic rhinitis, unspecified; G47.30 Sleep apnea, unspecified; E87.6 Hypokalemia; D50.9 Iron deficiency anemia, unspecified; I07.1 Rheumatic tricuspid insufficiency; I27.20 Pulmonary hypertension, unspecified; R00.0 Tachycardia, unspecified; R94.31 Abnormal electrocardiogram [ECG] [EKG]; F41.9 Anxiety disorder, unspecified; M10.9 Gout, unspecified; E66.01 Morbid (severe) obesity due to excess calories; Z68.44 Body mass index [BMI] 60.0-69.9, adult; Z79.3 Long term (current) use of hormonal contraceptives; Z79.899 Other long term (current) drug therapy
CPT/HCPCS: 36415; 71045; 71275; 80048; 80053; 80076; 81003; 81025; 82607; 82728; 83540; 83735; 83880; 84100; 84132; 84466; 84484; 85025; 85301; 85302; 85379; 85610; 86147; 93005; 93306; 93970; 96372; 96374; 99285; G0378; J1644; J1650; Q9967

== ENCOUNTER 2021-07-10 13:48 | Inpatient (IN) | payer OTHER ==
[2021-07-10] MEDS ORDERED: ONDANSETRON 4 MG/2 ML VIAL ONE (14:31)
[2021-07-10] MEDS ORDERED: NA CHLORIDE 0.9% 1,000 ML ONE ×2 (14:31→17:06)
--- NOTE | 2021-07-10 14:52 | RAD REPORT ---
EXAM DESCRIPTION: RAD - Chest Single View - 07/10/2021 2:31 pm CLINICAL HISTORY: CHEST PAIN Chest pain. COMPARISON: Chest Single View dated 10/01/2018 FINDINGS: Portable technique limits examination quality. The lungs are grossly clear. The heart is normal in size. No displaced fractures. IMPRESSION: No acute intrathoracic process suspected.
[2021-07-10 14:53] LABS: Absolute Lymphocytes (CBC) 1.3 K/uL (0.7-4.9); Hematocrit 37.7 % (36.0-45.0); Lymphocytes % 27.1 % (15.3-44.8); RBC Red Blood Cell Count 4.41 M/uL (3.86-4.86)
[2021-07-10 15:00] LABS: Protime INR 1.11
[2021-07-10] MEDS ORDERED: FENTANYL CITR 100 MCG/2 ML ONE ×2 (15:01→15:41)
[2021-07-10 15:28] LABS: Albumin 2.5 g/dL (3.4-5.0); Bilirubin Total 0.7 mg/dL (0.2-1.0); Magnesium 1.7 mg/dL (1.8-2.4); Protein, Total 7.4 g/dL (6.4-8.2); Troponin High Sensitivity 6.7 pg/mL (<58.9)
[2021-07-10 15:32] LABS: Potassium 2.4 mmol/L (3.5-5.1)
[2021-07-10] MEDS ORDERED: PROMETHAZINE INJ 25 MG/ML AMP ONE ×2 (15:40→18:05)
[2021-07-10] MEDS ORDERED: MAGNESIUM SULFATE 1 gm IVPB 0 GM/0 ML BAG IV ONE (17:06)
[2021-07-10] MEDS ORDERED: KCL 20 MEQ/100 mL IVPB 100 ML IV ONE ×2 (17:06→19:21)
--- NOTE | 2021-07-10 17:41 | RAD REPORT ---
EXAM DESCRIPTION: CT - Chest For Pe Angio - 07/10/2021 5:22 pm CLINICAL HISTORY: Chest pain. Chest pain;Dyspnea COMPARISON: Chest For Pe Angio dated 10/01/2018 TECHNIQUE: CT angiogram of the pulmonary arteries was performed with MIP. All CT scans are performed using dose optimization technique as appropriate and may include automated exposure control or mA/KV adjustment according to patient size. FINDINGS: No evidence of pulmonary thromboembolism. No acute aortic finding demonstrated. The lungs are clear. No significant pericardial or pleural fluid. No concerning bony finding. IMPRESSION: No evidence of pulmonary thromboembolism. No acute lung findings.
--- NOTE | 2021-07-10 17:48 | RAD REPORT ---
EXAM DESCRIPTION: CTAbdomen Pelvis W Contrast - 07/10/2021 5:22 pm CLINICAL HISTORY: Abdominal pain. ABD PAIN COMPARISON: CT ABD PELVIS W CONTRAST dated 01/04/2013 TECHNIQUE: Biphasic CT imaging of the abdomen and pelvis was performed with 100 ml non-ionic IV cont rast. All CT scans are performed using dose optimization technique as appropriate and may include automated exposure control or mA/KV adjustment according to patient size. FINDINGS: The lung bases are clear.Cholecystectomy. The liver is diffusely fatty. The spleen, pancreas, adrenal glands and kidneys are within normal limi ts. Postsurgical changes about the stomach. No bowel obstruction, free air, free fluid or abscess. The appendix is normal. No evidence of signi ficant lymphadenopathy. No suspicious bony findings. IMPRESSION: Diffuse fatty liver is noted. Postsurgical changes are present about the stomach.
--- NOTE | 2021-07-10 18:09 | EDPHYS ---
Physician Documentation [facility] Name: Caroline Ponce Age: 45 yrs Sex: Female : 1975 Arrival Date: 07/10/2021 Time: 13:53 Bed 27 Private MD: ED Physician Raymond Jack HPI: 07/10 16:35 This 45 yrs old Black Female presents to ER via Wheelchair with complaints of Chest jr8 Tightness, Breathing Difficulty, Productive Cough. 16:35 Onset: The symptoms/episode began/occurred acutely. Associated signs and symptoms: jr8 Pertinent positives: abdominal pain. The patient has not experienced similar symptoms in the past. The patient has not recently seen a physician. Historical: - Allergies: 14:14 naproxen; ll1 - PMHx: 14:14 Anxiety; Depression; Gout; Hypertension; Sleep Apnea; ll1 14:15 blood clots lungs; ll1 - PSHx: 14:14 gastric sleeve; ll1 - Immunization history:: Client reports having NOT received the Covid vaccine. Flu vaccine status is unknown. - Social history:: Smoking status: Patient denies any tobacco usage or history of. ROS: 16:36 Eyes: Negative for injury, pain, redness, and discharge, ENT: Negative for injury, jr8 pain, and discharge, Neck: Negative for injury, pain, and swelling, Back: Negative for injury and pain, MS/Extremity: Negative for injury and deformity, Skin: Negative for injury, rash, and discoloration, Neuro: Negative for headache, weakness, numbness, tingling, and seizure. 16:36 Cardiovascular: Positive for chest pain, Negative for edema, orthopnea, palpitations, paroxysmal nocturnal dyspnea. 16:36 Respiratory: Positive for cough, shortness of breath. 16:36 Abdomen/GI: Positive for abdominal pain, Negative for nausea, vomiting, and diarrhea. Exam: 16:36 Constitutional: This is a well developed, well nourished patient who is awake, alert, jr8 and in no acute distress. Cardiovascular: Regular rate and rhythm with a normal S1 and S2. No gallops, murmurs, or rubs. Normal PMI, no JVD. No pulse deficits. Respiratory: Lungs have equal breath sounds bilaterally, clear to auscultation and percussion. No rales, rhonchi or wheezes noted. No increased work of breathing, no retractions or nasal flaring. Back: No spinal tenderness. No costovertebral tenderness. Full range of motion. Skin: Warm, dry with normal turgor. Normal color with no rashes, no lesions, and no evidence of cellulitis. MS/ Extremity: Pulses equal, no cyanosis. Neurovascular intact. Full, normal range of motion. Neuro: Awake and alert, GCS 15, oriented to person, place, time, and situation. Motor strength 5/5 in all extremities. Sensory grossly intact. 16:36 Abdomen/GI: Inspection: abdomen appears normal, Bowel sounds: active, all quadrants, Palpation: soft, in all quadrants, moderate abdominal tenderness, in the abdomen diffusely, rebound tenderness, is not appreciated, voluntary guarding, is not appreciated, involuntary guarding, is not appreciated, no appreciated organomegaly, Indicators: McBurney's point is not tender, Guidry's sign is negative, Rovsing's sign is negative, Liver: tenderness, is not appreciated. Vital Signs: 14:11 BP 89 / 68; Pulse 96; Resp 22; Temp 98.6; Pulse Ox 100% ; Weight 95.25 kg; Height 5 ft. ll1 6 in. (167.64 cm); Pain 10/10; 15:30 BP 116 / 73; Pulse 82; Resp 18; Pulse Ox 99% on R/A; ld1 16:30 BP 95 / 67; Pulse 94; Resp 14; Pulse Ox 100% on R/A; ld1 17:05 BP 111 / 71; Pulse 67; Resp 15; Pulse Ox 100% on R/A; ld1 18:31 BP 128 / 89; Pulse 67; Resp 18; Pulse Ox 100% on R/A; ld1 19:52 BP 93 / 73; Pulse 82; Resp 16; Pulse Ox 100% on R/A; st1 14:11 Body Mass Index 33.89 (95.25 kg, 167.64 cm) ll1 MDM: 14:18 Patient medically screened. jr8 18:05 Data reviewed: vital signs, nurses notes, lab test result(s), EKG, radiologic studies, jr8 CT scan. Data interpreted: Pulse oximetry: on room air is 100 %. Interpretation: normal. Counseling: I had a detailed discussion with the patient and/or guardian regarding: the historical points, exam findings, and any diagnostic results supporting the discharge/admit diagnosis, lab results, radiology results, the need for further work-up and treatment in the hospital. Response to treatment: the patient's symptoms have mildly improved after treatment, patient is well hydrated. ED course: No surgically emergent findings on CT of the abdomen. CT of the chest without acute findings as well. Patient has moderate hypokalemia with continued vomiting. We will put her in for observation for continued hydration and replacement of her electrolytes.. 07/10 14:20 Order name: Blood Culture Adult (2) [facility] 07/10 14:20 Order name: CBC with Diff [facility] 07/10 14:20 Order name: CMP; Complete Time: 16:02 [facility] 07/10 14:20 Order name: Lactate; Complete Time: 15:32 [facility] 07/10 14:20 Order name: Protime (+inr); Complete Time: 15:02 [facility] 07/10 14:20 Order name: Ptt, Activated; Complete Time: 15:02 [facility] 07/10 14:20 Order name: Urine Microscopic Only [facility] 07/10 14:20 Order name: Troponin High Sensitivity; Complete Time: 16:02 [facility] 07/10 14:20 Order name: Magnesium; Complete Time: 16:02 [facility] 07/10 14:20 Order name: BNP; Complete Time: 16:02 [facility] 07/10 14:47 Order name: Glucose, Ancillary Testing; Complete Time: 14:51 EDMS 07/10 17:27 Order name: Lipase; Complete Time: 19:08 [facility] 07/10 18:16 Order name: COVID-19/FLU A+B (Document "Date of Onset" if Symptomatic) 1 07/10 14:20 Order name: Chest Single View XRAY; Complete Time: 15:02 [facility] 07/10 16:02 Order name: CT Chest For PE Angio; Complete Time: 17:48 8 07/10 16:02 Order name: CT Abd/Pelvis - IV Contrast Only; Complete Time: 17:50 07/10 18:17 Order name: COVID-19/FLU A+B; Complete Time: 19:08 EDMA 07/10 18:42 Order name: Lactate Sepsis 2 HR Follow-up; Complete Time: 19:08 EDMS 07/10 19:34 Order name: CBC Smear Scan EDMS 07/11 00:56 Order name: Potassium EDMS 07/11 04:32 Order name: CBC with Automated Diff EDMS 07/11 04:47 Order name: Urinalysis EDMS 07/11 05:05 Order name: Comprehensive Metabolic Panel EDMS 07/11 05:05 Order name: T4 Free EDMS 07/11 05:05 Order name: Magnesium EDMS 07/11 05:05 Order name: Thyroid Stimulating Hormone EDMS 07/11 05:08 Order name: Urine Microscopic Only EDMS 07/10 14:16 Order name: EKG; Complete Time: 14:16 1 07/10 14:16 Order name: EKG - Nurse/Tech; Complete Time: 14:16 1 07/10 14:20 Order name: Accucheck; Complete Time: 14:39 8 07/10 14:20 Order name: Cardiac monitoring; Complete Time: 14:39 8 07/10 14:20 Order name: IV Saline Lock - Large Bore; Complete Time: 14:39 8 07/10 14:20 Order name: Labs collected and sent; Complete Time: 14:39 8 07/10 14:20 Order name: O2 Per Protocol; Complete Time: 14:39 8 07/10 14:20 Order name: O2 Sat Monitoring; Complete Time: 14:39 jr8 Administered Medications: 14:39 Drug: NS 0.9% 1000 ml Route: IV; Rate: 1000 ml; Site: right antecubital; ld1 14:59 Drug: fentaNYL (PF) 25 mcg Route: IVP; Site: right antecubital; ld1 14:59 Drug: Zofran (Ondansetron) 4 mg Route: IVP; Site: right antecubital; ld1 15:45 Drug: Phenergan (promethazine) 12.5 mg Route: IVP; Site: right antecubital; ld1 15:45 Drug: fentaNYL (PF) 50 mcg Route: IVP; Site: right antecubital; ld1 17:46 Drug: Potassium Chloride 20 mEq Route: IV; Rate: calculated rate; Site: right ld1 antecubital; 18:16 Drug: Promethazine 12.5 mg Route: IVP; Site: right antecubital; ld1 18:21 Drug: Tessalon Perle (benzonatate) 100 mg Route: PO; ld1 18:45 Drug: Magnesium Sulfate 2 grams Route: IVPB; Infused Over: 2 hrs; Site: right ld1 antecubital; 19:21 Drug: Potassium Chloride 20 mEq Route: IV; Rate: calculated rate; Site: right st1 antecubital; 21:29 Follow up: Response: No adverse reaction; IV Status: Completed infusion; IV Intake: ll3 100ml 19:22 Drug: ProTONIX (pantoprazole) 40 mg Route: IVP; Site: right antecubital; st1 Disposition Summary: 07/10/21 18:09 Hospitalization Ordered Hospitalization Status: Observation jr8 Provider: Yandel Vieira jr8 Condition: Stable jr8 Problem: new jr8 Symptoms: have worsened jr8 Bed/Room Type: Standard [facility] Location: Telemetry/MedSurg (observation)(07/11/21 15:16) [facility] Room Assignment: [facility](07/11/21 16:42) Diagnosis - Dehydration jr8 - Hypotension, unspecified jr8 - Hypokalemia jr8 - Intractable vomiting jr8 - Abdominal pain, Generalized jr8 Forms: - Medication Reconciliation Form jr8 - SBAR form jr8 Signatures: Dispatcher [employer] EDMS Rahat Torrez PA PA jr8 Javier Rangel, SURFBOARD MAKER-C SURFBOARD MAKER-Cla1 Mariana Sánchez RN RN Ramin Antonio RN RN ja1 Rosa Maria Rossi Lynsay, RN RN ll1 Mercedez Gatica RN RN ld1 Ana Anguiano RN RN 1 Kelly Taylor RN ll3 Corrections: (The following items were deleted from the chart) 23:47 18:09 Telemetry/MedSurg (observation) jr8 cg 23:47 18:09 jr8 cg 07/11 15:16 07/10 23:47 [facility] ER HOLD cg [facility] 07/11 15:16 07/10 23:47 ERHOLD- cg [facility] 07/11 16:42 15:[address] [place] [address] eb
--- NOTE | 2021-07-10 18:09 | ER ---
Nurse's Notes [facility] Name: Caroline Ponce Age: 45 yrs Sex: Female : 1975 Arrival Date: 07/10/2021 Time: 13:53 Bed 27 Private MD: Diagnosis: Dehydration;Hypotension, unspecified;Hypokalemia;Intractable vomiting;Abdominal pain, Generalized Presentation: 07/10 14:11 Chief complaint: Patient states: SOB, cough, CP, weak since Tuesday. Chills/hot ll1 flashes. Reports syncope even 10 days ago before she got sick. Coronavirus screen: Vaccine status: Patient reports being unvaccinated. Client denies travel out of the [place] in the last 14 days. chills, cough unrelated to allergies, diarrhea, difficulty breathing, fatigue, headache, muscle pain, shaking with chills, shortness of breath, Client presents with at least one sign or symptom that may indicate coronavirus-19. Standard/surgical mask placed on the client. Ebola Screen: Patient denies travel to an Ebola-affected area in the 21 days before illness onset. Initial Sepsis Screen: Does the patient meet any 2 criteria? RR > 20 per min. HR > 90 bpm. Does the patient have a suspected source of infection? Yes: Productive cough/pneumonia. Risk Assessment: Do you want to hurt yourself or someone else? Patient reports no desire to harm self or others. Onset of symptoms was July 08, 2021. 14:11 Method Of Arrival: Wheelchair ll1 14:11 Acuity: RM 2 ll1 Historical: - Allergies: 14:14 naproxen; ll1 - PMHx: 14:14 Anxiety; Depression; Gout; Hypertension; Sleep Apnea; ll1 14:15 blood clots lungs; ll1 - PSHx: 14:14 gastric sleeve; ll1 - Immunization history:: Client reports having NOT received the Covid vaccine. Flu vaccine status is unknown. - Social history:: Smoking status: Patient denies any tobacco usage or history of. Screenin:39 Abuse screen: Denies threats or abuse. Denies injuries from another. Nutritional ld1 screening: No deficits noted. Tuberculosis screening: No symptoms or risk factors identified. Fall Risk None identified. Assessment: 14:39 General: Appears in no apparent distress. uncomfortable, Behavior is calm, cooperative, ld1 appropriate for age. Pain: Complains of pain in anterior aspect of right upper chest and mid-sternal area Pain radiates to right breast Pain currently is 8 out of 10 on a pain scale. Quality of pain is described as pressure, throbbing, Pain began 1 day ago. Is intermittent, Aggravated by breathing. Neuro: Level of Consciousness is awake, alert, obeys commands, Oriented to person, place, time, situation. Cardiovascular: Capillary refill < 3 seconds Patient's skin is warm and dry. Rhythm is sinus rhythm. Respiratory: Airway is patent Respiratory effort is even, unlabored, Respiratory pattern is regular, symmetrical. GI: Abdomen is round non-distended. GI: Reports nausea, vomiting. : No signs and/or symptoms were reported regarding the genitourinary system. EENT: No signs and/or symptoms were reported regarding the EENT system. Derm: No signs and/or symptoms reported regarding the dermatologic system. Musculoskeletal: No signs and/or symptoms reported regarding the musculoskeletal system. 15:30 Reassessment: Patient appears in no apparent distress at this time. No changes from ld1 previously documented assessment. Patient and/or family updated on plan of care and expected duration. Pain level reassessed. 18:31 Reassessment: Patient appears in no apparent distress at this time. Pt reporting nausea ld1 and coughing up phlegm. Notified ERP. See MAR for orders. Vital Signs: 14:11 BP 89 / 68; Pulse 96; Resp 22; Temp 98.6; Pulse Ox 100% ; Weight 95.25 kg; Height 5 ft. ll1 6 in. (167.64 cm); Pain 10/10; 15:30 BP 116 / 73; Pulse 82; Resp 18; Pulse Ox 99% on R/A; ld1 16:30 BP 95 / 67; Pulse 94; Resp 14; Pulse Ox 100% on R/A; ld1 17:05 BP 111 / 71; Pulse 67; Resp 15; Pulse Ox 100% on R/A; ld1 18:31 BP 128 / 89; Pulse 67; Resp 18; Pulse Ox 100% on R/A; ld1 19:52 BP 93 / 73; Pulse 82; Resp 16; Pulse Ox 100% on R/A; st1 14:11 Body Mass Index 33.89 (95.25 kg, 167.64 cm) ll1 ED Course: 13:53 Patient arrived in ED. ja2 14:10 Arm band placed on. ll1 14:14 Triage completed. ll1 14:15 EKG completed in triage. Results shown to MD. ll1 14:18 Rahat Torrez PA is PHCP. jr8 14:18 Raymond Jack MD is Attending Physician. jr8 14:26 Mercedez Gatica, SANDY is Primary Nurse. ld1 14:28 Patient has correct armband on for positive identification. Placed in gown. Bed in low mh5 position. Call light in reach. Side rails up X 1. Adult w/ patient. Warm blanket given. grinding machine operator automatic on. Pulse ox on. NIBP on. 14:28 EKG done, by ED staff, reviewed by Raymond Jack MD. [facility] 14:31 Chest Single View XRAY In Process Unspecified. EDMS 14:35 First set of blood cultures drawn by me. Inserted saline lock: 20 gauge in right 3 antecubital area, using aseptic technique. Blood collected. 14:39 No provider procedures requiring assistance completed. Patient maintains SpO2 ld1 saturation greater than 95% on room air. 14:39 Initial lab(s) drawn, by me, sent to lab. Second set of blood cultures drawn by me. 3 17:22 CT Chest For PE Angio In Process Unspecified. EDMS 17:22 CT Abd/Pelvis - IV Contrast Only In Process Unspecified. EDMS 18:08 Yandel Vieira MD is Hospitalizing Provider. jr8 18:21 COVID-19/FLU A+B (Document "Date of Onset" if Symptomatic) Sent. ld1 03 01:48 Report given to SANDY Huber in the ED. st1 Administered Medications: 03 14:39 Drug: NS 0.9% 1000 ml Route: IV; Rate: 1000 ml; Site: right antecubital; ld1 14:59 Drug: fentaNYL (PF) 25 mcg Route: IVP; Site: right antecubital; ld1 14:59 Drug: Zofran (Ondansetron) 4 mg Route: IVP; Site: right antecubital; ld1 15:45 Drug: Phenergan (promethazine) 12.5 mg Route: IVP; Site: right antecubital; ld1 15:45 Drug: fentaNYL (PF) 50 mcg Route: IVP; Site: right antecubital; ld1 17:46 Drug: Potassium Chloride 20 mEq Route: IV; Rate: calculated rate; Site: right ld1 antecubital; 18:16 Drug: Promethazine 12.5 mg Route: IVP; Site: right antecubital; ld1 18:21 Drug: Tessalon Perle (benzonatate) 100 mg Route: PO; ld1 18:45 Drug: Magnesium Sulfate 2 grams Route: IVPB; Infused Over: 2 hrs; Site: right ld1 antecubital; 19:21 Drug: Potassium Chloride 20 mEq Route: IV; Rate: calculated rate; Site: right st1 antecubital; 21:29 Follow up: Response: No adverse reaction; IV Status: Completed infusion; IV Intake: ll3 100ml 19:22 Drug: ProTONIX (pantoprazole) 40 mg Route: IVP; Site: right antecubital; st1 Intake: 21:29 IV: 100ml; Total: 100ml. 3 Outcome: 18:09 Decision to Hospitalize by Provider. jr8 07/11 18:40 Patient left the ED. 1 Signatures: Dispatcher [employer] EDMS Rahat Torrez PA PA 8 Zahraa Nguyen Janet Wong 3 Rolando Tsang RN RN ll1 Mercedez Gatica RN RN ld1 Nenita Ramires Lynsea, RN RN ll3 Ana Anguiano RN RN st1
[2021-07-10] MEDS ORDERED: BENZONATATE 100 MG CAP PO ONE (18:23)
[2021-07-10] MEDS ORDERED: Magnesium Sulfate 2gm IVPB 2 G/50 ML BAG IV ONE (18:45)
[2021-07-10 19:08] LABS: SARS-COV-2 RT PCR NEGATIVE (NEGATIVE)
[2021-07-10] MEDS ORDERED: PANTOPRAZOLE 40 MG INJ ONE ×2 (19:21→22:13)
[2021-07-10 19:34] LABS: Blood Morphology Comment NOT SEEN (NOT SEEN); Platelet Estimate ADEQ; White Blood Cell Scan OK (OK)
--- NOTE | 2021-07-10 19:59 | P.HP ---
Certification for Inpatient Patient admitted to: Observation With expected LOS: <2 Midnights Patient will require the following post-hospital care: None Practitioner: I am a practitioner with admitting privileges, knowledge of patient current condition, hospital course, and medical plan of care. Services: Services provided to patient in accordance with Admission requirements found in Title 42 Section 412.3 of the Code of Federal Regulations Patient History Date of Service: 07/10/21 Reason for admission: Abdominal pain, nausea/vomiting, hypokalemia History of Present Illness: 45-year-old -Martiniquais female with history of pulmonary embolism on chronic anticoagulation therapy, hypertension, anxiety/depression, sleep apnea presents the emergency department for nausea, vomiting and abdominal pain. Patient ports that she had gastric sleeve approximately 1 year ago that she has problems with only tolerating small amounts of liquid/food p.o. but for the past few days and had significant amount of vomiting and belly pain, also loss of coughing and sputum. Patient was evaluated in the emergency department with CT chest to rule out PE as well as CT abdomen pelvis with IV contrast CT abdomen pelvis showed diffuse fatty liver with postsurgical changes present about the stomach no other acute findings noted CT PE protocol was without acute findings as well. Her labs were remarkable for significant hypokalemia with a potassium of 2.4, patient tolerating only small amounts by mouth at this time ED provider wishes to admit under observation for hydration, repletion of potassium. Patient also reports that she feels like she suffers from significant reflux, was given dose of Protonix in the ER. Allergies naproxen Adverse Reaction (Verified 10/01/18 20:16) Shortness of breath Home Medications: Apixaban [Eliquis] 5 mg PO SEECOM #70 tablet 10/02/18 Loratadine [Claritin*] 10 mg PO DAILY 10/02/18 Sertraline [Zoloft*] 100 mg PO DAILY 10/02/18 Valsartan [Diovan*] 320 mg PO DAILY 10/02/18 - Past Medical/Surgical History Diabetic: No -: HTN -: Anxiety -: Depression -: Sleep Apnea -: GOUT -: PE -: Milka -: Gastric sleeve Psychosocial/ Personal History: Lives at home with family - Family History Family History: Reviewed- Non-Contributory - Social History Smoking Status: Never smoker Alcohol use: No CD- Drugs: Yes Caffeine use: Yes Place of Residence: Home Review of Systems 10-point ROS is otherwise unremarkable Respiratory: Cough Gastrointestinal: Nausea, Vomiting, Abdominal Pain Physical Examination - Physical Exam General: Alert, In no apparent distress, Oriented x3 HEENT: Atraumatic, PERRLA, Mucous membr. moist/pink, EOMI, Sclerae nonicteric Neck: Supple, 2+ carotid pulse no bruit, No LAD, Without JVD or thyroid abnormality Respiratory: Clear to auscultation bilaterally, Normal air movement Cardiovascular: Regular rate/rhythm, Normal S1 S2 Capillary refill: <2 Seconds Gastrointestinal: Normal bowel sounds, Tenderness (Mild to moderate epigastric tenderness) Musculoskeletal: No tenderness Integumentary: No rashes Neurological: Normal speech, Normal strength at 5/5 x4 extr, Normal tone, Normal affect - Studies Laboratory Data (last 24 hrs) 07/10/21 14:39: Lipase 124 07/10/21 14:39: PT 12.2, INR 1.11, APTT 31.5 07/10/21 14:39: Sodium 137, Potassium 2.4 L*, BUN 10, Creatinine 1.18, Glucose 101, Magnesium 1.7 L D, Total Bilirubin 0.7, AST 48 H, ALT 33, Alkaline Phosphatase 125 H 07/10/21 14:39: WBC 4.70, Hgb 13.2, Hct 37.7, Plt Count 263 Assessment and Plan - Plan Assessment: Intractable nausea/vomiting, abdominal pain Hypokalemia History of PE on chronic anticoagulation Hypertension Plan: Intractable nausea/vomiting, abdominal pain: Clear liquid diet, advance as tolerated. As needed antiemetics, scheduled Protonix twice daily. CT abdomen pelvis negative for acute findings patient had gastric sleeve approximately 1 year ago reports that she is only able to tolerate small amounts of liquid and food, instructed patient that she will need to follow-up with her surgeon after discharge from the hospital. At my time evaluation patient is tolerating drinking water small sips. Hypokalemia: Replaced in the emergency department, will check at night and again in the morning with protocol in place. History of PE on chronic anticoagulation: Continue Eliquis Hypertension: Continue home medication DVT PPX: Continue Eliquis Code status: Full Discharge Plan: Home Plan to discharge in: 24 Hours - Advance Directives Does patient have a Living Will: No Does patient have a Durable POA for Healthcare: No - Code Status/Comfort Care Code Status Assessed: Yes (Full) Critical Care: No Time Spent Managing Pts Care (In Minutes): 55
[2021-07-10] MEDS ORDERED: ONDANSETRON 4 MG/2 ML VIAL IV PRN (21:55)
[2021-07-10] MEDS ORDERED: NACHLORIDE 0.45% 1,000 ML with POTASSIUM CL 20 MEQ IV SCH ×2 (21:55)
[2021-07-10] MEDS: PANTOPRAZOLE 40 MG INJ IVP SCH (21:55)
[2021-07-10] MEDS: APIXABAN 5 MG TABLET PO SCH (21:55)
[2021-07-10] MEDS ORDERED: BENZONATATE 100 MG CAP PO PRN (21:55)
[2021-07-10] MEDS ORDERED: SODIUM CHLORIDE 0.9% 10ML INJ IV PRN (21:55)
[2021-07-10] MEDS ORDERED: MORPHINE 2 MG/ML SYR ONE (22:11)
[2021-07-10] MEDS ORDERED: APIXABAN 5 MG TABLET ONE (22:12)
[2021-07-10] MEDS: MORPHINE 2 MG/ML SYR IV PRN (22:18)
[2021-07-10] MEDS: PROMETHAZINE INJ 25 MG/ML AMP IV PRN (22:19)
[2021-07-10] MEDS: NACHLORIDE 0.45% 1,000 ML IV SCH (22:32)
[2021-07-11] MEDS: MORPHINE 2 MG/ML SYR IV PRN ×4 (03:27→23:05)
[2021-07-11] MEDS ORDERED: MORPHINE 2 MG/ML SYR ONE ×3 (03:29→16:25)
[2021-07-11 04:08] VITALS: BMI 33.8
[2021-07-11 04:30] LABS: Absolute Lymphocytes (CBC) 1.5 K/uL (0.7-4.9); Hematocrit 32.6 % (36.0-45.0); Lymphocytes % 23.7 % (15.3-44.8); MPV 7.8 fL (7.6-11.3); RBC Red Blood Cell Count 3.71 M/uL (3.86-4.86)
[2021-07-11 04:43] LABS: Urine Appearance CLEAR (Clear); Urine Blood NEGATIVE (Negative); Urine Color DK YELLOW (Yellow); Urine Glucose NEGATIVE (Negative); Urine Protein 1+ (Negative); Urine Specific Gravity >=1.030 (1.005-1.030)
[2021-07-11 04:46] LABS: Urine Bilirubin NEGATIVE (Negative); Urine Microscopic Reflex ORDER UMIC
[2021-07-11 05:05] LABS: Bilirubin Total 0.5 mg/dL (0.2-1.0); Magnesium 2.1 mg/dL (1.8-2.4); Potassium 2.6 mmol/L (3.5-5.1); Protein, Total 5.9 g/dL (6.4-8.2); Thyroid Stimulating Hormone 5.16 uIU/mL (0.360-3.740)
[2021-07-11 05:08] LABS: Urine Bacteria 20-50 /HPF (<20); Urine Mucus 2+ /HPF (NONE SEEN); Urine RBC <5 /HPF (NONE SEEN)
[2021-07-11] MEDS ORDERED: NA CHLORIDE 0.9% 0 ML ONE (06:14)
[2021-07-11] MEDS: NACHLORIDE 0.45% 1,000 ML IV SCH ×3 (06:16→23:06)
[2021-07-11] MEDS ORDERED: NACHLORIDE 0.45% 1,000 ML IV ONE ×2 (06:18→15:41)
[2021-07-11] MEDS: KCL 20 MEQ/100 mL IVPB 20 MEQ/100 ML BAG IV SCH ×5 (06:49→22:59)
[2021-07-11] MEDS ORDERED: KCL 20 MEQ/100 mL IVPB 100 ML IV ONE ×3 (06:50→12:50)
[2021-07-11] MEDS ORDERED: NA CHLORIDE 0.9% 1,000 ML IV ONE (07:42)
[2021-07-11] MEDS ORDERED: APIXABAN 5 MG TABLET ONE (08:27)
[2021-07-11] MEDS ORDERED: PANTOPRAZOLE 40 MG INJ ONE (08:27)
[2021-07-11] MEDS: APIXABAN 5 MG TABLET PO SCH ×2 (08:41→21:09)
[2021-07-11] MEDS: PANTOPRAZOLE 40 MG INJ IVP SCH ×2 (08:42→21:09)
[2021-07-11] MEDS ORDERED: NA CHLORIDE 0.9% 0 ML IV ONE (08:47)
[2021-07-11] MEDS ORDERED: NA CHLORIDE 0.9% 1,000 ML ONE (08:50)
[2021-07-11] MEDS ORDERED: POTASSIUM 25 MEQ EFFERV TAB PO ONE (09:00)
[2021-07-11] MEDS: SUCRALFATE 1GM/10ML UCUP PO SCH ×4 (09:08→21:00)
--- NOTE | 2021-07-11 15:35 | P.PN ---
Date of Service: 07/11/21 Subjective: No significant change in her symptoms since admission, continues with some nausea, moderate abdominal discomfort ROS: 10 point ROS as noted above, otherwise negative Physical exam GEN: Alert, oriented, NAD HEENT: Normal conjunctiva, sclera anicteric CV: Regular rate and rhythm, no edema Pulm: Nonlabored respirations on room air ABD: Soft, moderate RUQ and epigastric tenderness Neuro: Normal speech, normal affect Problem List Intractable nausea/vomiting, abdominal pain Hypokalemia History of PE on chronic anticoagulation Hypertension Continue clear liquid diet, advance as tolerated Antiemetics as needed CT abdomen/pelvis without any acute findings With moderate tenderness in RUQ/epigastric possibly secondary to gastric/duodenal ulcer continue protonix, add carafate replace potassium - hypokalemia secondary to GI losses from vomiting and diarrhea continue eliquis - h/o PE VTE: Eliquis Code: Full Dispo: Home, 24 hours Pending improvement/correction of potassium, tolerating liquids, improvement in pain Time Spent Managing Pts Care (In Minutes): 35
[2021-07-11] MEDS: PROMETHAZINE INJ 25 MG/ML AMP IV PRN (17:55)
[2021-07-11 19:30] LABS: Potassium 2.7 mmol/L (3.5-5.1)
[2021-07-11 23:30] VITALS: O2SAT 100
[2021-07-12] MEDS: KCL 20 MEQ/100 mL IVPB 20 MEQ/100 ML BAG IV SCH ×3 (01:00→10:50)
[2021-07-12 04:21] LABS: Absolute Lymphocytes (CBC) 3.1 K/uL (0.7-4.9); Hematocrit 32.4 % (36.0-45.0); Lymphocytes % 46.3 % (15.3-44.8); MPV 8.3 fL (7.6-11.3); RBC Red Blood Cell Count 3.75 M/uL (3.86-4.86)
[2021-07-12 04:35] LABS: ALT/SGPT 32 U/L (12-78); AST/SGOT 53 U/L (15-37); Alkaline Phosphatase 97 U/L (45-117); BUN Blood Urea Nitrogen 6 mg/dL (7-18); Bicarbonate 30 mmol/L (21-32); Bilirubin Total 0.6 mg/dL (0.2-1.0); Glucose Level 67 mg/dL (74-106); Magnesium 1.9 mg/dL (1.8-2.4); Potassium 3.2 mmol/L (3.5-5.1); Protein, Total 5.6 g/dL (6.4-8.2); Sodium Level 136 mmol/L (136-145)
[2021-07-12 04:54] LABS: Anisocytosis 1+; Blood Morphology Comment NOTED (NOT SEEN); Platelet Estimate ADEQ
[2021-07-12] MEDS: MORPHINE 2 MG/ML SYR IV PRN (05:06)
[2021-07-12] MEDS: NACHLORIDE 0.45% 1,000 ML IV SCH ×2 (05:16→15:44)
[2021-07-12] MEDS ORDERED: POTASSIUM 25 MEQ EFFERV TAB PO ONE (06:33)
[2021-07-12] MEDS: PANTOPRAZOLE 40 MG INJ IVP SCH ×2 (08:06→20:03)
[2021-07-12] MEDS: SUCRALFATE 1 GM TABLET PO SCH ×4 (08:07→20:00)
[2021-07-12] MEDS: APIXABAN 5 MG TABLET PO SCH ×2 (08:07→20:01)
[2021-07-12] MEDS ORDERED: INFLUENZA VACCINE (for 6+ mo) 0.5 ML DOSE IMVAC ONE (09:00)
[2021-07-12] MEDS ORDERED: PNEUMOCOCCAL VACCINE 0.5 ML IMVAC ONE (09:00)
[2021-07-12] MEDS: FENTANYL CITR 100 MCG/2 ML IV PRN ×2 (12:40→22:56)
--- NOTE | 2021-07-12 13:43 | P.PN ---
Date of Service: 07/12/21 Subjective: feels better, but continues with abdominal pain not tolerating much PO loose stool BP remains low / bordeline low-normal urinating more denies dysuria ROS: 10 point ROS as noted above, otherwise negative Physical exam GEN: Alert, oriented, NAD HEENT: Normal conjunctiva, sclera anicteric CV: Regular rate and rhythm, no edema Pulm: Nonlabored respirations on room air ABD: Soft, moderate RUQ and epigastric tenderness Neuro: Normal speech, normal affect Problem List Intractable nausea/vomiting, abdominal pain Hypokalemia History of PE on chronic anticoagulation Hypertension Continue clear liquid diet, advance as tolerated Antiemetics as needed CT abdomen/pelvis without any acute findings check CRP/procal today still with moderate tenderness in RUQ/epigastric possibly secondary to gastric/duodenal ulcer continue protonix, pt not tolerating liquid carafate, will try pill replace potassium - hypokalemia secondary to GI losses from vomiting and diarrhea continue eliquis - h/o PE if no improvement, will consult GI tomorrow VTE: Eliquis Code: Full Dispo: Home, 1-2 days Pending improvement/correction of potassium, tolerating liquids, improvement in pain Time Spent Managing Pts Care (In Minutes): 35
[2021-07-12] MEDS ORDERED: NA CHLORIDE 0.9% 500 ML IV SCH (22:00)
[2021-07-13] MEDS: NACHLORIDE 0.45% 1,000 ML IV SCH ×4 (01:04→20:01)
[2021-07-13 03:51] LABS: Absolute Lymphocytes (CBC) 2.8 K/uL (0.7-4.9); Hematocrit 28.5 % (36.0-45.0); RBC Red Blood Cell Count 3.28 M/uL (3.86-4.86)
[2021-07-13 04:11] LABS: ALT/SGPT 25 U/L (12-78); AST/SGOT 34 U/L (15-37); Albumin 1.5 g/dL (3.4-5.0); Alkaline Phosphatase 82 U/L (45-117); BUN Blood Urea Nitrogen 3 mg/dL (7-18); Bicarbonate 29 mmol/L (21-32); Bilirubin Total 0.4 mg/dL (0.2-1.0); Glucose Level 73 mg/dL (74-106); Lipase 50 U/L (73-393); Magnesium 1.7 mg/dL (1.8-2.4); Potassium 3.4 mmol/L (3.5-5.1); Protein, Total 4.8 g/dL (6.4-8.2); Sodium Level 139 mmol/L (136-145)
[2021-07-13] MEDS ORDERED: POTASSIUM CL SA 10 MEQ TAB PO ONE (05:24)
[2021-07-13] MEDS ORDERED: MAGNESIUM SULFATE 1 gm IVPB 1 GM/100 ML BAG IV ONE (05:24)
--- NOTE | 2021-07-13 06:18 | P.PN ---
Date of Service: 07/13/21 Subjective: tolerating liquids, continues with abd discomfort no nausea/vomiting, +BM yesterday ROS: 10 point ROS as noted above, otherwise negative Physical exam GEN: Alert, oriented, NAD HEENT: Normal conjunctiva, sclera anicteric CV: Regular rate and rhythm, no edema Pulm: Nonlabored respirations on room air ABD: Soft, moderate epigastric, and periumbilical tenderness Neuro: Normal speech, normal affect Problem List Intractable nausea/vomiting, improving abdominal pain Hypokalemia History of PE on chronic anticoagulation Hypertension advance diet to soft foods Antiemetics as needed CT abdomen/pelvis without any acute findings CRP/procal negative still with moderate tenderness in epigstric/periumbilical possibly secondary to gastric/duodenal ulcer continue protonix, pt not tolerating liquid carafate, but tolerating pill ok replace potassium - hypokalemia secondary to GI losses from vomiting and diarrhea continue eliquis - h/o PE no significant improvement in pain, but tolerating liquids better GI consulted, possible ulcer, possible stricture - pt reports >1 month of inability to tolerate much food (solids beyond consistency of shakes) will advance diet to see if tolerates as well. may benefit from MBS / upper gi series BP improved, drops slightly after pain medication, denies ligtheadedness/dizziness VTE: Eliquis Code: Full Dispo: Home, ~1 day Pending improvement/correction of potassium, tolerating PO, improvement in pain Time Spent Managing Pts Care (In Minutes): 35
[2021-07-13] MEDS: FENTANYL CITR 100 MCG/2 ML IV PRN ×2 (06:47→12:45)
[2021-07-13] MEDS: PROMETHAZINE INJ 25 MG/ML AMP IV PRN ×3 (06:48→23:27)
--- NOTE | 2021-07-13 08:26 | EKG ---
Test Date: 2021-07-10 Test Time: 13:16:46 Convertible Top Installer: ABDIRIZKA MEASUREMENT RESULTS: Intervals: Rate: 77 CA: 140 QRSD: 82 QT: 410 QTc: 463 [place]: P: 84 CA: 140 QRS: 38 T: -67 INTERPRETIVE STATEMENTS: Normal sinus rhythm ST & T wave abnormality, consider inferior ischemia Abnormal ECG No previous ECG available for comparison Electronically Signed On 07-13-21 08:21:41 CDT by Torres Jeter
[2021-07-13] MEDS: APIXABAN 5 MG TABLET PO SCH ×2 (09:39→20:46)
[2021-07-13] MEDS: PANTOPRAZOLE 40 MG INJ IVP SCH ×2 (09:39→20:46)
[2021-07-13] MEDS: SUCRALFATE 1 GM TABLET PO SCH ×5 (09:39→21:00)
[2021-07-13] MEDS: MORPHINE 2 MG/ML SYR IV PRN ×2 (16:41→23:26)
[2021-07-14] MEDS: NACHLORIDE 0.45% 1,000 ML IV SCH (04:14)
[2021-07-14] MEDS: PROMETHAZINE INJ 25 MG/ML AMP IV PRN (05:50)
[2021-07-14] MEDS: MORPHINE 2 MG/ML SYR IV PRN (05:50)
[2021-07-14 06:57] LABS: ALT/SGPT 28 U/L (12-78); AST/SGOT 34 U/L (15-37); Albumin 1.8 g/dL (3.4-5.0); Alkaline Phosphatase 93 U/L (45-117); BUN Blood Urea Nitrogen 3 mg/dL (7-18); Bicarbonate 26 mmol/L (21-32); Bilirubin Total 0.4 mg/dL (0.2-1.0); Ferritin 928.2 ng/mL (8-388); Glucose Level 72 mg/dL (74-106); Magnesium 1.8 mg/dL (1.8-2.4); Potassium 3.9 mmol/L (3.5-5.1); Protein, Total 5.4 g/dL (6.4-8.2); Sodium Level 136 mmol/L (136-145); Transferrin 62 mg/dL (200-360)
[2021-07-14] MEDS: SUCRALFATE 1 GM TABLET PO SCH ×2 (07:54→11:30)
[2021-07-14] MEDS: PANTOPRAZOLE 40 MG INJ IVP SCH (09:00)
[2021-07-14] MEDS: APIXABAN 5 MG TABLET PO SCH (09:00)
[2021-07-14] MEDS ORDERED: LIDOCAINE 1% MPF 5 ML VIAL ONE (12:52)
[2021-07-14 13:02] VITALS: BP 98/62; TEMP 98.8
--- NOTE | 2021-07-14 14:24 | P.DS ---
Admission Date: 07/11/21 Discharge Date: 07/14/21 Disposition: ROUTINE DISCHARGE Discharge Condition: FAIR Reason for Admission: Abdominal pain, nausea/vomiting, hypokalemia Consultations: GI -Dr. Mims. Brief History of Present Illness: 45-year-old -[place]ian female with history of pulmonary embolism on chronic anticoagulation therapy, hypertension, anxiety/depression, sleep apnea presented to the emergency department for nausea, vomiting and abdominal pain. Patient reports that she had gastric sleeve approximately 1 year ago that she has problems with only tolerating small amounts of liquid/food p.o. but for the past few days and had significant amount of vomiting and belly pain. Patient was evaluated in the emergency department with CT abdomen pelvis with IV contrast CT abdomen pelvis which showed diffuse fatty liver with postsurgical changes present about the stomach no other acute findings noted. CT PE protocol done was without acute findings as well. Her labs were remarkable for significant hypokalemia with a potassium of 2.4. Patient admitted for further management. Hospital Course: Problem List Intractable nausea/vomiting, improving abdominal pain Hypokalemia History of PE on chronic anticoagulation Hypertension Patient admitted to the medical floor and treated with IV Protonix and sucralfate. GIDr. Mims was consulted for suspected possible ulcer or stricture and recommended follow-up with him as an outpatient for EGD. Patient tolerated clear liquid diet on the current regimen and was later advanced to full liquids which she tolerated. Pain management also done during this hospital stay She had hypokalemia secondary to GI losses from vomiting and diarrhea which was replaced continued eliquis for h/o PE Patient symptoms have improved, she is tolerating diet and deemed stable for discharge. Vital Signs/Physical Exam: Temp Pulse Resp BP Pulse Ox 98.8 F 74 16 98/62 100 07/14/21 12:00 07/14/21 12:00 07/14/21 12:00 07/14/21 12:00 07/14/21 12:00 General: Alert, In no apparent distress, Oriented x3 HEENT: Mucous membr. moist/pink Neck: Supple, JVD not distended Respiratory: Clear to auscultation bilaterally, Normal air movement Cardiovascular: No edema, Regular rate/rhythm, Normal S1 S2 Gastrointestinal: Normal bowel sounds, Soft and benign, Non-distended, No tenderness Musculoskeletal: No tenderness Integumentary: No rashes, No cyanosis Neurological: Normal strength at 5/5 x4 extr, Cranial nerves 3-12 intact Laboratory Data at Discharge: WBC 5.80 K/uL (4.3-10.9) 07/13/21 03:29 Hgb 10.0 g/dL (12.0-15.0) L 07/13/21 03:29 Hct 28.5 % (36.0-45.0) L 07/13/21 03:29 Plt Count 158 K/uL (152-406) 07/13/21 03:29 PT 12.2 SECONDS (9.5-12.5) 07/10/21 14:39 INR 1.11 07/10/21 14:39 APTT 31.5 SECONDS (24.3-36.9) 07/10/21 14:39 Sodium 136 mmol/L (136-145) 07/14/21 05:40 Potassium 3.9 mmol/L (3.5-5.1) 07/14/21 05:40 BUN 3 mg/dL (7-18) L 07/14/21 05:40 Creatinine 0.71 mg/dL (0.55-1.3) 07/14/21 05:40 Glucose 72 mg/dL (74-106) L 07/14/21 05:40 Magnesium 1.8 mg/dL (1.8-2.4) 07/14/21 05:40 Total Bilirubin 0.4 mg/dL (0.2-1.0) 07/14/21 05:40 AST 34 U/L (15-37) 07/14/21 05:40 ALT 28 U/L (12-78) 07/14/21 05:40 Alkaline Phosphatase 93 U/L (45-117) 07/14/21 05:40 Lipase 50 U/L (73-393) L 07/13/21 03:29 Home Medications: Apixaban [Eliquis] 5 mg PO BID 07/11/21 Simvastatin 20 mg PO DAILY 07/11/21 Benzonatate [Tessalon Perle*] 100 mg PO TID PRN #30 tab 07/14/21 Hydrocodone 5/APAP 325 [[place] 5/325] 1 tab PO Q6H PRN #15 tab 07/14/21 Pantoprazole Sodium [Protonix] 40 mg PO BID #60 tablet. 07/14/21 Sucralfate [Carafate*] 1 gm PO ACHS #30 tab 07/14/21 New Medications: Sucralfate [Carafate*] 1 gm PO ACHS #30 tab Hydrocodone 5/APAP 325 [[place] 5/325] 1 tab PO Q6H PRN #15 tab PRN Reason: Pain Pantoprazole Sodium [Protonix] 40 mg PO BID #60 tablet. Benzonatate [Tessalon Perle*] 100 mg PO TID PRN #30 tab PRN Reason: Cough Physician Discharge Instructions: Full liquid to soft diet Diet: AHA Activity: Ad nadir Followup: Ricky Antonio, [Primary Care Provider] - 1-2 Weeks (CAll to schedule an appointment) Jose Mims MD [ACTIVE - CAN ADMIT] - 1 Week (Please call Office for appointment.) Time spent managing pt's care (in minutes): 34
== END 2021-07-14 14:49 | disposition home or self-care (01) | DRG 641 ==
LOC: ER 13:48 → INTOOBSV 19:08 → ERHOLD 19:08 → OBSVTOIN 07-11 15:48 → 4TH 07-11 17:20
PROVIDERS: ADMIT Hospitalist; ATTEND Internal Medicine
DX: E87.6 Hypokalemia (principal); I10 Essential (primary) hypertension; E86.0 Dehydration; I95.9 Hypotension, unspecified; M10.9 Gout, unspecified; K25.9 Gastric ulcer, unspecified as acute or chronic, without hemorrhage or perforation; K26.9 Duodenal ulcer, unspecified as acute or chronic, without hemorrhage or perforation; Z86.711 Personal history of pulmonary embolism; Z98.84 Bariatric surgery status; Z88.8 Allergy status to other drugs, medicaments and biological substances; Z79.01 Long term (current) use of anticoagulants; Z79.899 Other long term (current) drug therapy; Z90.49 Acquired absence of other specified parts of digestive tract; Z20.822 Contact with and (suspected) exposure to COVID-19
CPT/HCPCS: 0240U; 36415; 71045; 71275; 74177; 80048; 80053; 81003; 81015; 82533; 82728; 82947; 83540; 83605; 83690; 83735; 83880; 84132; 84145; 84439; 84443; 84466; 84484; 85025; 85610; 85730; 86140; 87040; 87086; 87088; 93005; 96365; 96366; 96375; 99285; C9113; G0378; J2270; J2405; J2550; J3010; J3475; J3480; J7030; Q9967

== ENCOUNTER 2022-08-23 09:35 | Emergency (ER) | payer OTHER ==
--- NOTE | 2022-08-23 10:40 | EDPHYS ---
Physician Documentation [facility] Name: Caroline Huizar Age: 46 yrs Sex: Female : 1975 Arrival Date: 08/23/2022 Time: 09:35 Bed 20 Private MD: Grant Rosario HPI: 08/23 10:27 This 46 yrs old Black Female presents to ER via EMS with complaints of Post Surgical jason Bleeding. 10:27 The patient presents with abdominal pain in the upper abdomen, in the lower abdomen. jason Onset: The symptoms/episode began/occurred 2 week(s) ago. The patient presents to the emergency department with nausea, abdominal pain, of the right upper quadrant and left upper quadrant. Onset: The symptoms/episode began/occurred 14 day(s) ago. Possible causes: sp bowel resection, with draniage, carey drains full. The symptoms are aggravated by movement, pressure, The symptoms are alleviated by nothing. remaining still. Associated signs and symptoms: Pertinent positives: abdominal pain, nausea. Associated signs and symptoms: Pertinent positives: nausea and vomiting. Modifying factors: The symptoms are alleviated by remaining still, the symptoms are aggravated by movement, pressure, touching the area. Severity of pain: At its worst the pain was moderate in the emergency department the pain is unchanged. Severity of symptoms: At their worst the symptoms were moderate in the emergency department the symptoms are unchanged. Historical: - Allergies: 09:49 Naproxen; kc6 - Home Meds: 12:41 ertapenem 1 gram injection Recon Soln every 24 hours [Active]; Percocet 5-325 mg Oral kc6 tablet every 6 hours for pain [Active]; bisacodyl 5 mg Oral tablet 2 tabs daily for constipation [Active]; Pepcid 20 mg Oral tablet every 12 hours [Active]; Protonix 40 mg Oral tablet, delayed release (enteric coated) 1 tab daily [Active]; cetirizine 10 mg oral tablet 1 tab once [Active]; - PMHx: 09:49 Anxiety; blood clots lungs; Depression; Gout; Hypertension; Sleep Apnea; kc6 - PSHx: 09:49 gastric sleeve; Cholecystectomy; kc6 - Immunization history:: Client reports having NOT received the Covid vaccine. Flu vaccine is not up to date. - Social history:: Smoking status: Patient denies any tobacco usage or history of. - Family history:: not pertinent. ROS: 10:27 Constitutional: Negative for fever, chills, and weight loss, Eyes: Negative for injury, jason pain, redness, and discharge, ENT: Negative for injury, pain, and discharge, Neck: Negative for injury, pain, and swelling, Cardiovascular: Negative for chest pain, palpitations, and edema, Respiratory: Negative for shortness of breath, cough, wheezing, and pleuritic chest pain, Back: Negative for injury and pain, : Negative for injury, bleeding, discharge, and swelling, Skin: Negative for injury, rash, and discoloration, Neuro: Negative for headache, weakness, numbness, tingling, and seizure, Psych: Negative for depression, anxiety, suicide ideation, homicidal ideation, and hallucinations, Allergy/Immunology: Negative for hives, rash, and allergies, Endocrine: Negative for neck swelling, polydipsia, polyuria, polyphagia, and marked weight changes, Hematologic/Lymphatic: Negative for swollen nodes, abnormal bleeding, and unusual bruising. 10:27 Abdomen/GI: Positive for abdominal pain, nausea, abdominal cramps, abdominal distension, of the right upper quadrant, left upper quadrant, right lower quadrant and left lower quadrant. 10:27 MS/extremity: Positive for decreased range of motion, pain, swelling, tenderness, of the right leg and left leg. Exam: 10:27 Constitutional: This is a well developed, well nourished patient who is awake, alert, jason and in no acute distress. Head/Face: Normocephalic, atraumatic. Eyes: Pupils equal round and reactive to light, extra-ocular motions intact. Lids and lashes normal. Conjunctiva and sclera are non-icteric and not injected. Cornea within normal limits. Periorbital areas with no swelling, redness, or edema. ENT: Nares patent. No nasal discharge, no septal abnormalities noted. Tympanic membranes are normal and external auditory canals are clear. Oropharynx with no redness, swelling, or masses, exudates, or evidence of obstruction, uvula midline. Mucous membranes moist. Neck: Trachea midline, no thyromegaly or masses palpated, and no cervical lymphadenopathy. Supple, full range of motion without nuchal rigidity, or vertebral point tenderness. No Meningismus. Chest/axilla: Normal chest wall appearance and motion. Nontender with no deformity. No lesions are appreciated. Respiratory: Lungs have equal breath sounds bilaterally, clear to auscultation and percussion. No rales, rhonchi or wheezes noted. No increased work of breathing, no retractions or nasal flaring. Back: No spinal tenderness. No costovertebral tenderness. Full range of motion. Skin: Warm, dry with normal turgor. Normal color with no rashes, no lesions, and no evidence of cellulitis. MS/ Extremity: Pulses equal, no cyanosis. Neurovascular intact. Full, normal range of motion. Neuro: Awake and alert, GCS 15, oriented to person, place, time, and situation. Cranial nerves II-XII grossly intact. Motor strength 5/5 in all extremities. Sensory grossly intact. Cerebellar exam normal. Normal gait. Psych: Awake, alert, with orientation to person, place and time. Behavior, mood, and affect are within normal limits. 10:27 Cardiovascular: Rate: tachycardic, actual rate is 101 bpm, Rhythm: regular, Pulses: Pulses are 4+ in bilateral radial, brachial, femoral, popliteal, posterior tibial and and dorsalis pedis arteries.. Heart sounds: normal, Edema: is not appreciated, JVD: is noted bilaterally, to 2 cm. 10:27 ECG was reviewed by the Attending Physician. Vital Signs: 09:47 BP 106 / 73; Pulse 101; Resp 27 S; Temp 98.9(O); Pulse Ox 97% on R/A; Weight 98.43 kg kc6 (M); Height 5 ft. 6 in. (R); 12:47 BP 113 / 83; Pulse 98; Resp 18 S; Temp 99(O); Pulse Ox 98% on R/A; kc6 13:33 BP 115 / 80; Pulse 97; Resp 19 S; Pulse Ox 96% on R/A; kc6 14:14 BP 114 / 83; Pulse 102; Resp 21; Pulse Ox 98% on R/A; kc6 15:15 BP 113 / 80; Pulse 102; Resp 22; Pulse Ox 99% on R/A; kc6 16:29 BP 121 / 77; Pulse 99; Resp 20 S; Temp 100.8; Pulse Ox 97% on R/A; kc6 09:47 Body Mass Index 35.02 (98.43 kg, 167.64 cm) kc6 MDM: 09:39 Patient medically screened. jason 09:40 Patient medically screened. jason 10:32 Differential diagnosis: Nonspecific abd pain, pancreatitis, diverticulitis, viral jason gastroenteritis, gastroenteritis, bowel obstruction, Mesenteric ischemia or infarction, non-specific abd pain, pancreatitis, Peptic Ulcer Disease, urinary tract infection. Data reviewed: vital signs, nurses notes, EMS record, lab test result(s), EKG, radiologic studies. Consideration of Admission/Observation Patient was admitted/placed on observation. Escalation of care including admission/observation considered. Management of patient was discussed with the following: Professor Of Genetics: gastric surgeon. I considered the following discharge prescriptions or medication management in the emergency department Medications were administered in the Emergency Department. See MAR. Test considered but Not performed: MRI: no mri abd . Care significantly affected by the following chronic conditions: Diabetes, Hypertension, Obesity, Chronic Kidney Disease. Counseling: I had a detailed discussion with the patient and/or guardian regarding: the historical points, exam findings, and any diagnostic results supporting the discharge/admit diagnosis, lab results, radiology results, the need to transfer to another facility, for higher level of care, [facility] does not immediately have the required specialist. 08/23 10:20 Order name: Basic Metabolic Panel; Complete Time: 11:35 [facility] 08/23 10:20 Order name: CBC with Diff; Complete Time: 11:17 [facility] 08/23 10:20 Order name: LFT's; Complete Time: 11:35 [facility] 08/23 10:20 Order name: Magnesium; Complete Time: 11:35 [facility] 08/23 10:20 Order name: NT PRO-BNP; Complete Time: 11:35 [facility] 08/23 10:20 Order name: PT-INR; Complete Time: 13:31 [facility] 08/23 10:20 Order name: Troponin HS; Complete Time: 11:35 [facility] 08/23 10:20 Order name: Urinalysis w/ reflexes [facility] 08/23 10:20 Order name: Blood Culture Adult (2) [facility] 08/23 10:20 Order name: Lactate w/ 2H reflex if indic.; Complete Time: 11:17 [facility] 08/23 10:20 Order name: Type And Screen; Complete Time: 11:35 [facility] 08/23 10:20 Order name: XRAY Chest (1 view); Complete Time: 11:35 08/23 10:20 Order name: US Extremity Venous W Compression [place]; Complete Time: 13:31 08/23 10:20 Order name: CT Chest Abdomen Pelvis W/O Contrast; Complete Time: 11:17 08/23 10:20 Order name: EKG; Complete Time: 10: [facility] 08/23 10:20 Order name: Cardiac monitoring; Complete Time: :08/23 10:20 Order name: EKG - Nurse/Tech; Complete Time: 08/23 10:20 Order name: IV Saline Lock; Complete Time: [facility] 08/23 10:20 Order name: Labs collected and sent; Complete Time: :08/23 10:20 Order name: O2 Per Protocol; Complete Time: [facility] 08/23 10:20 Order name: O2 Sat Monitoring; Complete Time: : [facility] 08/23 10:56 Order name: Labs - recollect needed: blue top only; Complete Time: 11:25 jl7 EC:27 Rate is 98 beats/min. Rhythm is regular. QRS [place] is Normal. PA interval is normal. QRS jason interval is normal. QT interval is normal. No Q waves. T waves are Normal. No ST changes noted. Clinical impression: NSR w/ Non-specific ST/T Changes and No evidence of ischemia. Interpreted by me. Reviewed by me. Administered Medications: 11:36 Discontinued: NS 0.9% IV 1000 ml IV at 125 ml/hr continuous jason 10:50 Not Given (Physician Discretion): NS 0.9% IV 1000 ml IV at 75 ml/hr continuous kc6 11:25 Drug: NS 0.9% IV 1000 ml Route: IV; Rate: 125 ml/hr; Site: left antecubital; kc6 12:44 Follow up: Response: No adverse reaction; IV Status: Order to discontinue infusion kc6 11:25 Drug: NS 0.9% IV 500 ml Route: IV; Rate: bolus; Site: left antecubital; kc6 11:50 Follow up: Response: No adverse reaction; IV Status: Completed infusion; IV Intake: kc6 500ml 11:26 Drug: Famotidine IVP 20 mg Route: IVP; Site: left antecubital; kc6 11:50 Follow up: Response: No adverse reaction kc6 11:50 Drug: Piperacillin-Tazobactam IVPB 3.375 grams Route: IVPB; Infused Over: 60 mins; kc6 Site: PICC; 12:35 Follow up: Response: No adverse reaction; IV Status: Completed infusion; IV Intake: kc6 100ml 11:50 Drug: Albumin IVPB 25 grams Volume: 100 ml; Route: IVPB; Site: left antecubital; kc6 12:47 Follow up: Response: No adverse reaction; IV Status: Completed infusion; IV Intake: kc6 100ml 12:35 Drug: NS 0.9% with KCl IV 20 mEq/L 1000 ml Route: IV; Rate: 125 ml/hr; Site: left kc6 antecubital; 16:29 Follow up: Response: No adverse reaction; IV Status: Infusion continued upon transfer kc6 Disposition Summary: 08/23/22 10:39 Transfer Ordered Transfer Location: [facility] Reason: Higher level of care jason Condition: Fair jason Problem: new jason Symptoms: have improved jason Accepting Physician: to francisco gomez md(08/23/22 17:08) kc6 Diagnosis - Generalized abdominal tenderness jason - Generalized edema jason - Anemia, unspecified jason - Other postprocedural complications and disorders of digestive system - anastamosis jason breakdown(08/23/22 11:19) - Hypokalemia jason - Pleural effusion, not elsewhere classified jason Forms: - Medication Reconciliation Form jason - SBAR form jason Critical care time excluding procedures: 10:34 Critical care time: Bedside Care: 25 minutes, Consultation: 10 minutes, Family jason Intervention: 10 minutes. Total time: 45 minutes Signatures: Dispatcher [employer] Grant Pham MD MD cha Leal, Jahala RN RN jl7 Alissa Huggins RN RN kc6 Corrections: (The following items were deleted from the chart) 11:19 10:39 to [facility] lilia gomez md, cha [facility] 11:19 10:39 Other postprocedural complications and disorders of digestive system jason jason 11:35 11:19 to [facility] lilia gomez md, cha jason 17:08 11:35 to [facility] lilia gomez md, cha kc6
--- NOTE | 2022-08-23 10:40 | ER ---
Nurse's Notes [facility] Name: Caroline Huizar Age: 46 yrs Sex: Female : 1975 Arrival Date: 08/23/2022 Time: 09:35 Bed 20 Private MD: Diagnosis: Generalized abdominal tenderness;Other postprocedural complications and disorders of digestive system-anastamosis breakdown;Generalized edema;Anemia, unspecified;Hypokalemia;Pleural effusion, not elsewhere classified Presentation: 08/23 09:47 Chief complaint: EMS states: pt from home. pt had gastric sleeve revision x1 week ago. kc6 one of her incisions from a previous KEVIN drain started leaking profusely yesterday and today. family states a nurse from a prior facility accidentally pulled it out. pt has a PICC line to the [facility] infusing TPN. Coronavirus screen: Vaccine status: Patient reports being unvaccinated. At this time, the client does not indicate any symptoms associated with coronavirus-19. Ebola Screen: No symptoms or risks identified at this time. Initial Sepsis Screen: Does the patient meet any 2 criteria? HR > 90 bpm. Does the patient have a suspected source of infection? Yes: Skin breakdown/wound. Risk Assessment: Do you want to hurt yourself or someone else? Patient reports no desire to harm self or others. Onset of symptoms was August 23, 2022. 09:47 Method Of Arrival: EMS: [place] [id number] 09:47 Acuity: RM 3 kc6 Triage Assessment: 09:49 General: Appears in no apparent distress. comfortable, obese, well groomed, Behavior is kc6 calm, cooperative, appropriate for age. Pain: Denies pain. EENT: No signs and/or symptoms were reported regarding the EENT system. Neuro: Baltazar Agitation-Sedation Scale (RASS): 0 - Alert and Calm Level of Consciousness is awake, alert, obeys commands, Oriented to person, place, time, situation, Appropriate for age. Cardiovascular: Heart tones S1 S2 present Capillary refill < 3 seconds Edema is 3+ to left midcalf, left ankle, right midcalf and right ankle pitting to left midcalf, left ankle, right midcalf and right ankle Rhythm is sinus tachycardia. Respiratory: Airway is patent Trachea midline Respiratory effort is even, unlabored, Respiratory pattern is regular, symmetrical. GI: Abdomen is flat, non-distended, Bowel sounds hypoactive in left lower quadrant and right lower quadrant and left upper quadrant and right upper quadrant Abdomen is tender to palpation X 4 quads. Abd is rigid X 4 quads. : No signs and/or symptoms were reported regarding the genitourinary system. Derm: Skin is pink, warm \T\ dry. Wound noted abdomen Wound is appears to be two KEVNI drains present draining dark brown liquid. pt is also noted to have a covered intact dressing without redness or swelling that was previously draining a yellow liquid. Decubitus located on sacrum is stage II. Musculoskeletal: No signs and/or symptoms reported regarding the musculoskeletal system. Circulation, motion, and sensation intact. Capillary refill < 3 seconds, Range of motion: limited in ROBERTA lower extremities. Historical: - Allergies: 09:49 Naproxen; kc6 - Home Meds: 12:41 ertapenem 1 gram injection Recon Soln every 24 hours [Active]; Percocet 5-325 mg Oral kc6 tablet every 6 hours for pain [Active]; bisacodyl 5 mg Oral tablet 2 tabs daily for constipation [Active]; Pepcid 20 mg Oral tablet every 12 hours [Active]; Protonix 40 mg Oral tablet, delayed release (enteric coated) 1 tab daily [Active]; cetirizine 10 mg oral tablet 1 tab once [Active]; - PMHx: 09:49 Anxiety; blood clots lungs; Depression; Gout; Hypertension; Sleep Apnea; kc6 - PSHx: 09:49 gastric sleeve; Cholecystectomy; kc6 - Immunization history:: Client reports having NOT received the Covid vaccine. Flu vaccine is not up to date. - Social history:: Smoking status: Patient denies any tobacco usage or history of. - Family history:: not pertinent. Screenin:52 [facility] ED Fall Risk Assessment (Adult) History of falling in the last 3 months, kc6 including since admission No falls in past 3 months (0 pts) Confusion or Disorientation No (0 pts) Intoxicated or Sedated No (0 pts) Impaired Gait Yes (1 pt) Mobility Assist Device Used Yes (1 pt) Altered Elimination No (0 pt) Score/Fall Risk Level 0 - 2 = Low Risk Oriented to surroundings, Maintained a safe environment, Educated pt \T\ family on fall prevention, incl call for assistance when getting out of bed, Assessed \T\ reinforced patient's understanding of fall precautions, Hourly rounding (assess needs \T\ fall precautionary measures) done. Abuse screen: Denies threats or abuse. Denies injuries from another. Nutritional screening: On weight loss diet, TPN. Tuberculosis screening: No symptoms or risk factors identified. Assessment: 09:51 Reassessment: please see triage assessment. [facility] 10:51 Reassessment: Patient appears in no apparent distress at this time. No changes from [facility] previously documented assessment. Patient and/or family updated on plan of care and expected duration. Pain level reassessed. Patient is alert, oriented x 3, equal unlabored respirations, skin warm/dry/pink. 11:51 Reassessment: Patient appears in no apparent distress at this time. No changes from [facility] previously documented assessment. Patient and/or family updated on plan of care and expected duration. Pain level reassessed. Patient is alert, oriented x 3, equal unlabored respirations, skin warm/dry/pink. 12:51 Reassessment: Patient appears in no apparent distress at this time. No changes from [facility] previously documented assessment. Patient and/or family updated on plan of care and expected duration. Pain level reassessed. Patient is alert, oriented x 3, equal unlabored respirations, skin warm/dry/pink. 13:51 Reassessment: Patient appears in no apparent distress at this time. No changes from [facility] previously documented assessment. Patient and/or family updated on plan of care and expected duration. Pain level reassessed. Patient is alert, oriented x 3, equal unlabored respirations, skin warm/dry/pink. 14:13 Reassessment: [place] [facility] [place] nurse [place] [facility] giving a unit of blood and for me to call back in 15min. 15:13 Reassessment: Patient appears in no apparent distress at this time. No changes from [facility] previously documented assessment. Patient and/or family updated on plan of care and expected duration. Pain level reassessed. Patient is alert, oriented x 3, equal unlabored respirations, skin warm/dry/pink. 16:13 Reassessment: Patient appears in no apparent distress at this time. No changes from [facility] previously documented assessment. Patient and/or family updated on plan of care and expected duration. Pain level reassessed. Patient is alert, oriented x 3, equal unlabored respirations, skin warm/dry/pink. Vital Signs: 09:47 BP 106 / 73; Pulse 101; Resp 27 S; Temp 98.9(O); Pulse Ox 97% on R/A; Weight 98.43 kg kc6 (M); Height 5 ft. 6 in. (R); 12:47 BP 113 / 83; Pulse 98; Resp 18 S; Temp 99(O); Pulse Ox 98% on R/A; kc6 13:33 BP 115 / 80; Pulse 97; Resp 19 S; Pulse Ox 96% on R/A; kc6 14:14 BP 114 / 83; Pulse 102; Resp 21; Pulse Ox 98% on R/A; kc6 15:15 BP 113 / 80; Pulse 102; Resp 22; Pulse Ox 99% on R/A; kc6 16:29 BP 121 / 77; Pulse 99; Resp 20 S; Temp 100.8; Pulse Ox 97% on R/A; kc6 09:47 Body Mass Index 35.02 (98.43 kg, 167.64 cm) 6 ED Course: 09:39 Patient arrived in ED. jason 09:39 Grant Verma MD is Attending Physician. jason 09:47 Alissa Huggins, RN is Primary Nurse. kc6 09:49 Triage completed. kc6 09:49 Arm band placed on. kc6 09:52 Patient has correct armband on for positive identification. Placed in gown. Bed in low kc6 position. Call light in reach. Side rails up X2. Adult w/ patient. 10:35 Inserted saline lock: 20 gauge in left antecubital area, using aseptic technique. Blood kc6 collected. 10:47 CT Chest Abdomen Pelvis W/O Contrast In Process Unspecified. EDMS 11:00 XRAY Chest (1 view) In Process Unspecified. EDMS 11:35 initiated transfer to [facility]. bd 12:51 US Extremity Venous W Compression Roberta In Process Unspecified. EDMS 13:57 pt accepted in transfer [place] [facility] [place] Duff, admin approval given by katina Alvarado,pt going to 5 east,surgical floor. 17:01 No provider procedures requiring assistance completed. Patient transferred, IV remains kc6 in place. Administered Medications: 11:36 Discontinued: NS 0.9% IV 1000 ml IV at 125 ml/hr continuous jason 10:50 Not Given (Physician Discretion): NS 0.9% IV 1000 ml IV at 75 ml/hr continuous kc6 11:25 Drug: NS 0.9% IV 1000 ml Route: IV; Rate: 125 ml/hr; Site: left antecubital; kc6 12:44 Follow up: Response: No adverse reaction; IV Status: Order to discontinue infusion kc6 11:25 Drug: NS 0.9% IV 500 ml Route: IV; Rate: bolus; Site: left antecubital; kc6 11:50 Follow up: Response: No adverse reaction; IV Status: Completed infusion; IV Intake: kc6 500ml 11:26 Drug: Famotidine IVP 20 mg Route: IVP; Site: left antecubital; kc6 11:50 Follow up: Response: No adverse reaction kc6 11:50 Drug: Piperacillin-Tazobactam IVPB 3.375 grams Route: IVPB; Infused Over: 60 mins; 6 Site: PICC; 12:35 Follow up: Response: No adverse reaction; IV Status: Completed infusion; IV Intake: kc6 100ml 11:50 Drug: Albumin IVPB 25 grams Volume: 100 ml; Route: IVPB; Site: left antecubital; kc6 12:47 Follow up: Response: No adverse reaction; IV Status: Completed infusion; IV Intake: kc6 100ml 12:35 Drug: NS 0.9% with KCl IV 20 mEq/L 1000 ml Route: IV; Rate: 125 ml/hr; Site: left kc6 antecubital; 16:29 Follow up: Response: No adverse reaction; IV Status: Infusion continued upon transfer kc6 Medication: 17:02 VIS not applicable for this client. kc6 Intake: 11:50 IV: 500ml; Total: 500ml. kc6 12:35 IV: 100ml; Total: 600ml. kc6 12:47 IV: 100ml; Total: 700ml. kc6 Outcome: 10:39 ER care complete, transfer ordered by . jason 17:01 Transferred by ground EMS to [facility], Transfer form completed. Note: kc6 report called to SANDY Neves. pt transported via [facility] 17:01 Condition: improved 17:01 Instructed on the need for transfer. 17:08 Patient left the ED. kc6 Signatures: Dispatcher [employer] EDMS Ambar Torres Corey, MD MD cha Campbell, Kaitlyn, RN RN kc6 Corrections: (The following items were deleted from the chart) 10:52 09:49 GI: Abdomen is flat, non-distended, Bowel sounds present X 4 quads. Abd is soft kc6 and non tender X 4 quads. kc6 10:52 09:49 Derm: Skin is pink, warm \T\ dry. Wound noted abdomen kc6 kc6 12:53 09:49 Derm: Skin is pink, warm \T\ dry. Wound noted abdomen Wound is appears to be two KEVIN kc6 drains present draining dark brown liquid. pt is also noted to have a covered intact dressing without redness or swelling that was previously draining a yellow liquid. kc6 12:54 09:47 Chief complaint: EMS states: pt from home. pt had gastric sleeve revision x1 week kc6 ago and one of her incisions started leaking profusely yesterday and today. pt has a PICC line to the [facility] infusing TPN. kc6
[2022-08-23] MEDS ORDERED: NA CHLORIDE 0.9% 500 ML ONE (10:47)
[2022-08-23] MEDS ORDERED: NA CHLORIDE 0.9% 1,000 ML ONE (10:48)
[2022-08-23] MEDS ORDERED: FAMOTIDINE 20 MG/2 ML VIAL IV ONE (10:48)
[2022-08-23 10:53] LABS: Hematocrit 30.2 % (36.0-45.0); Lymphocytes % 12.3 % (15.3-44.8); MCV 88.1 fL (80-100); MPV 7.7 fL (7.6-11.3); RBC Red Blood Cell Count 3.43 M/uL (3.86-4.86)
--- NOTE | 2022-08-23 11:14 | RAD REPORT ---
EXAM DESCRIPTION: CTChest Abd Pelvis Wo Con - 08/23/2022 10:45 am CLINICAL HISTORY: ABDOMINAL DISTENTION COMPARISON: Chest For Pe Angio dated 08/03/2022; Chest For Pe Angio dated 04/23/2022; Chest For Pe An angie dated 07/10/2021; Chest For Pe Angio dated 10/01/2018; Abdomen Pelvis W Contrast dated 08/03/2022 TECHNIQUE: CT of the chest, abdomen, and pelvis was performed. All CT scans are performed using dose optimization technique as appropriate and may include automated exposure control or mA/KV adjustment according to patient size. FINDINGS: Thorax: Chest Wall: Anasarca. Right subclavian approach PICC. Lungs: The atelectasis as initially effusion. Small nonspecific consolidative airspace process ease i n the right middle and right lower lobe. Pleura: Moderate to large bilateral pleural effusions. Serena/Mediastinum: No lymphadenopathy. Aorta/Pulmonary Arteries: Unremarkable Heart: Normal size. Abdomen/Pelvis: Liver: No acute abnormality or suspicious lesions. Biliary: No biliary ductal dilatation. Stomach: Partial gastrectomy. Duodenum: No significant focal abnormality. Pancreas: No significant abnormality. Spleen: No significant abnormality. Adrenal: No suspicious lesions. Kidney/ureter: No hydronephrosis. No renal calculi. Retroperitoneum: No retroperitoneal adenopathy. Vascular: No aneurysm. Atherosclerosis . Bowel: No bowel obstruction. Air-fluid level in the rectum consistent with liquid stool.. Possible br eakdown at the small bowel anastomosis in left lower quadrant as there is mottled gas. Peritoneum: Interval placement of 2 intraperitoneal drains with decrease in volume of what ascites. A ir within the ascites and may be from instrumentation. Peritoneal enhancement is noted. Interval deve lopment of fluid and air extending into what is presumably a laparoscopic port in the left lower quad rant. Fluid containing periumbilical hernia. Bladder: Decompressed, not well evaluated. Reproductive: No adnexal masses. Bones: No acute fracture. Other: Sacral decubitus ulcer. Severe anasarca. IMPRESSION: 1. Interval placement of intraperitoneal drains for loculated ascites. Mottled gas withi n the left lower quadrant could represent anastomotic leak as there is a clinical concern. Some of th e gas may also be related to presence of the drains as well. The ascites remains loculated with indet erminate sterility. 2. New moderate to large bilateral pleural effusions and certainly atelectasis but also possibly pneu monia or pneumonitis in the right upper lobe. 3. Severe anasarca.
[2022-08-23 11:19] LABS: Bilirubin Direct 0.1 mg/dL (0-0.2); Bilirubin Total 0.3 mg/dL (0.2-1.0); Magnesium 1.7 mg/dL (1.6-2.4); Potassium 3.2 mEq/L (3.5-5.1); Protein, Total 5.8 g/dL (6.4-8.2); Troponin High Sensitivity 14.2 pg/mL (<58.9)
--- NOTE | 2022-08-23 11:30 | RAD REPORT ---
EXAM DESCRIPTION: RAD - Chest Single View - 08/23/2022 10:59 am CLINICAL HISTORY: ABDOMINAL DISTENTION COMPARISON: Chest Single View dated 08/03/2022; Chest Single View dated 07/10/2021; Chest Single View dated 10/01/2018 FINDINGS: Layering bilateral pleural effusions are present. Small focus of consolidation in the righ t upper lobe noted but better demonstrated on CT. A PICC is present which terminates overlying the pr oximal SVC. No fractures are seen. Drains overlie the upper abdomen. IMPRESSION: Moderate to large layering bilateral pleural effusions with underlying atelectasis. Poss ible pneumonitis or pneumonia in the right lung. Reference subsequent chest CT.
[2022-08-23] MEDS ORDERED: NA CHLORIDE 0.9% 100 ML ONE (11:35)
[2022-08-23] MEDS ORDERED: PIPERACIL/TAZO 3.375 GM VIAL IV ONE (11:36)
[2022-08-23] MEDS ORDERED: ALBUMIN HUMAN 25% 100 ML IV ONE (11:38)
[2022-08-23 11:39] LABS: Protime INR 1.35
[2022-08-23] MEDS ORDERED: NS KCL 20MEQ 1,000 ML IV ONE (12:04)
--- NOTE | 2022-08-23 13:14 | RAD REPORT ---
EXAM DESCRIPTION: US - Extrem Venous W Compress Kan - 08/23/2022 12:49 pm CLINICAL HISTORY: Pain, swelling COMPARISON: None. TECHNIQUE: Real-time sonographic evaluation of the bilateral lower extremity deep venous systems was performed. FINDINGS: Normal compressibility, flow augmentation, phasic flow and spontaneous flow is identified in both the left and right lower extremity deep venous systems. No intraluminal filling defects seen. Moderate bilateral subcutaneous soft tissue edema. IMPRESSION: No evidence of DVT in either lower extremity. Moderate bilateral subcutaneous soft tissue edema.
[2022-08-23 14:14] LABS: Urine Bacteria None Seen /HPF (<20); Urine Bilirubin NEGATIVE (Negative); Urine Blood Negative (Negative); Urine Clarity Clear (Clear); Urine Color Yellow (Yellow); Urine Glucose NEGATIVE (Negative); Urine Mucus Slight /HPF (None Seen); Urine Protein 1+ (Negative); Urine RBC <5 /HPF (None Seen); Urine Urobilinogen Normal (Normal)
[2022-08-23] MEDS ORDERED: ACETAMINOPHEN 325 MG TABLET ONE (16:13)
[2022-08-23 18:29] VITALS: BP 121/77; TEMP 100.8; O2SAT 97
--- NOTE | 2022-08-24 16:07 | EKG ---
Test Date: 2022-08-23 Test Time: 10:28:04 Dog Handler: LINDSAY MEASUREMENT RESULTS: Intervals: Rate: 98 MO: 136 QRSD: 76 QT: 396 QTc: 505 [place]: P: 46 MO: 136 QRS: 0 T: -29 INTERPRETIVE STATEMENTS: Normal sinus rhythm Prolonged QT Abnormal ECG Compared to ECG 08/03/2022 16:08:40 Prolonged QT interval now present Myocardial infarct finding no longer present Electronically Signed On 08-24-22 16:05:17 CDT by Torres Jeter
== END 2022-08-23 17:08 | disposition short-term general hospital (02) ==
LOC: ER 09:35
DX: K91.89 Other postprocedural complications and disorders of digestive system (principal); D64.9 Anemia, unspecified; E87.6 Hypokalemia; J90 Pleural effusion, not elsewhere classified; R60.1 Generalized edema; I10 Essential (primary) hypertension; F32.A Depression, unspecified; Z88.6 Allergy status to analgesic agent
CPT/HCPCS: 93005; 87040; 85025; 81001; 80048; 36415; 86900; 83735; 86850; 85610; 86901; 80076; 83605; 84484; 83880; 71250; 74176; 71045; 93970; 99285; J2543; P9047; J7040; J7030; J3480

== ENCOUNTER 2022-11-27 19:48 | Emergency (ER) | payer OTHER ==
[2022-11-27 20:52] LABS: Absolute Lymphocytes (CBC) 0.9 K/uL (0.7-4.9); Hematocrit 31.6 % (36.0-45.0); Lymphocytes % 8.2 % (15.3-44.8); MCV 72.6 fL (80-100); MPV 7.2 fL (7.6-11.3); RBC Red Blood Cell Count 4.35 M/uL (3.86-4.86)
[2022-11-27] MEDS ORDERED: KETOROLAC 30 MG/ML INJ ONE (20:54)
[2022-11-27] MEDS ORDERED: ACETAMINOPHEN 500 MG TAB ONE (20:54)
[2022-11-27] MEDS ORDERED: MORPHINE 4 MG/ML SYR ONE (20:54)
[2022-11-27] MEDS ORDERED: NA CHLORIDE 0.9% 2,000 ML ONE (20:54)
[2022-11-27 20:56] LABS: Protime INR 0.95
[2022-11-27 21:08] LABS: Albumin 2.3 g/dL (3.4-5.0); Bilirubin Total 0.2 mg/dL (0.2-1.0); Potassium 3.8 mEq/L (3.5-5.1); Protein, Total 8.7 g/dL (6.4-8.2)
[2022-11-27 21:52] LABS: Urine Bilirubin Negative (Negative); Urine Blood Negative (Negative); Urine Clarity Clear (Clear); Urine Glucose Negative (Negative); Urine Protein 1+ (Negative); Urine pH 6.5 (5.0-7.0)
[2022-11-27 21:53] LABS: Urine Color DK YELLOW (Yellow)
[2022-11-27] MEDS ORDERED: VANCOMYCIN 1 GM/VIAL ONE (21:57)
[2022-11-27] MEDS ORDERED: NA CHLORIDE 0.9% 250 ML ONE (21:58)
[2022-11-27] MEDS ORDERED: NA CHLORIDE 0.9% 100 ML ONE (21:58)
[2022-11-27] MEDS ORDERED: PIPERACIL/TAZO 3.375 GM VIAL IV ONE (21:58)
[2022-11-27] MEDS ORDERED: ONDANSETRON 4 MG/2 ML VIAL ONE (21:58)
[2022-11-27 22:02] LABS: Urine Bacteria 20-50 /HPF (<20); Urine Mucus Slight /HPF (None Seen); Urine RBC <5 /HPF (None Seen)
[2022-11-27] MEDS ORDERED: ALBUMIN HUMAN 25% 100 ML IV ONE (22:25)
[2022-11-27 22:31] LABS: SARS-CoV-2 Antigen Rapid Res Negative (Negative)
--- NOTE | 2022-11-28 00:47 | ER ---
Nurse's Notes [facility] Name: Caroline Huizar Age: 47 yrs Sex: Female : 1975 Arrival Date: 11/27/2022 Time: 19:48 Bed 4 Private MD: Ricky Antonio Diagnosis: Right lower lung organizing pneumonia. Fever, sepsis with septic shock;Small bowel anastomosis dehiscence, loculated extraluminal air left lower abdominal quadrant;Anasarca, left greater than right bilateral pleural effusions, periportal edema, Presentation: 11/27 20:08 Chief complaint: Patient states: FEVER SINCE TUESDAY, SEEN AT [facility] TODAY AND REFERRED TO ER FOR HYPOTENSION. RECENT 1 MONTH HOSPITALIZATION DC IN AUGUST. Coronavirus screen: At this time, the client does not indicate any symptoms associated with coronavirus-19. Ebola Screen: No symptoms or risks identified at this time. Initial Sepsis Screen: Does the patient meet any 2 criteria? RR > 20 per min. Temp <36.0*C (96.8*F)) or > 38.3*C (100.9*F). Systolic BP < 90 mmHg. Yes Does the patient have a suspected source of infection? Yes: Acute abdominal pain If YES to both, name of provider notified: Ovidio Weinstein MD. Risk Assessment: Do you want to hurt yourself or someone else? Patient reports no desire to harm self or others. Onset of symptoms is unknown. 20:08 Method Of Arrival: Wheelchair bp 20:08 Acuity: RM 3 bp Historical: - Allergies: 20:06 Naproxen; bp - Home Meds: 20:06 bisacodyl 5 mg Oral tablet 2 tabs daily for constipation [Active]; cetirizine 10 mg bp Oral tablet 1 tab once [Active]; Eliquis 5 mg Oral tablet once [Active]; ertapenem 1 gram injection Recon Soln every 24 hours [Active]; Pepcid 20 mg Oral tablet every 12 hours [Active]; Percocet 5-325 mg Oral tablet every 6 hours for Pain [Active]; Protonix 40 mg Oral tablet, delayed release (enteric coated) 1 tab daily [Active]; - PMHx: 20:06 Anxiety; Gout; Depression; blood clots lungs; Hypertension; Sleep Apnea; bp - PSHx: 20:06 Cholecystectomy; gastric sleeve; LYMPHEDEMA; bp - Immunization history:: Adult Immunizations up to date. - Social history:: Smoking status: Patient denies any tobacco usage or history of. - Family history:: not pertinent. Screenin:56 [facility] ED Fall Risk Assessment (Adult) History of falling in the last 3 months, mb9 including since admission No falls in past 3 months (0 pts) Confusion or Disorientation No (0 pts) Intoxicated or Sedated No (0 pts) Impaired Gait No (0 pts) Mobility Assist Device Used No (0 pt) Altered Elimination No (0 pt) Score/Fall Risk Level 0 - 2 = Low Risk Oriented to surroundings, Maintained a safe environment, Educated pt \T\ family on fall prevention, incl call for assistance when getting out of bed. Abuse screen: Denies threats or abuse. Nutritional screening: No deficits noted. Tuberculosis screening: No symptoms or risk factors identified. Assessment: 20:27 General: Appears in no apparent distress. uncomfortable, Behavior is calm, cooperative. jb4 Pain: Complains of pain in Generalized body aches Pain does not radiate. Pain currently is 10 out of 10 on a pain scale. Neuro: Level of Consciousness is awake, alert, obeys commands, Oriented to person, place, time, situation. Cardiovascular: Patient's skin is warm and dry. Respiratory: Airway is patent Respiratory effort is even, unlabored, Respiratory pattern is regular, symmetrical. GI: No signs and/or symptoms were reported involving the gastrointestinal system. : No signs and/or symptoms were reported regarding the genitourinary system. EENT: No signs and/or symptoms were reported regarding the EENT system. Derm: Skin is pink, warm \T\ dry. Decubitus located on sacrum. Musculoskeletal: Circulation, motion, and sensation intact. Range of motion: intact in all extremities. 21:30 Reassessment: Patient appears in no apparent distress at this time. Patient and/or jb4 family updated on plan of care and expected duration. Pain level reassessed. Patient is alert, oriented x 3, equal unlabored respirations, skin warm/dry/pink. 23:00 Reassessment: Patient appears in no apparent distress at this time. Patient and/or jb4 family updated on plan of care and expected duration. Pain level reassessed. Patient is alert, oriented x 3, equal unlabored respirations, skin warm/dry/pink. 23:53 Reassessment: Patient appears in no apparent distress at this time. Patient and/or jb4 family updated on plan of care and expected duration. Pain level reassessed. Patient is alert, oriented x 3, equal unlabored respirations, skin warm/dry/pink. Bandage on bed soar changed, wound cleaned. 11/28 01:00 Reassessment: Patient appears in no apparent distress at this time. Patient and/or jb4 family updated on plan of care and expected duration. Pain level reassessed. Patient is alert, oriented x 3, equal unlabored respirations, skin warm/dry/pink. 02:00 Reassessment: Patient appears in no apparent distress at this time. Patient and/or jb4 family updated on plan of care and expected duration. Pain level reassessed. Patient is alert, oriented x 3, equal unlabored respirations, skin warm/dry/pink. 02:20 Reassessment: Clarified order for repeat dose of zosyn. Instructed to still give the jb4 medication. 02:54 Reassessment: Patient appears in no apparent distress at this time. Patient and/or jb4 family updated on plan of care and expected duration. Pain level reassessed. Patient is alert, oriented x 3, equal unlabored respirations, skin warm/dry/pink. 03:34 Reassessment: Patient appears in no apparent distress at this time. Patient and/or jb4 family updated on plan of care and expected duration. Pain level reassessed. Patient is alert, oriented x 3, equal unlabored respirations, skin warm/dry/pink. EMS at the bedside transferring pt. Vital Signs: 11/27 20:08 BP 82 / 64; Pulse 117; Resp 24; Temp 101.2; Pulse Ox 100% ; Weight 72.57 kg; Height 5 bp ft. 6 in. ; 21:50 BP 105 / 65; Pulse 84; Resp 16; Pulse Ox 100% on R/A; jb4 23:15 BP 104 / 66; Pulse 74; Resp 19; Temp 98.6(O); Pulse Ox 99% on R/A; jb4 11/28 00:10 BP 102 / 61; Pulse 71; Resp 16; Pulse Ox 100% on R/A; jb4 01:00 BP 114 / 76; Pulse 73; Resp 16; Pulse Ox 100% on R/A; jb4 02:00 BP 110 / 77; Pulse 70; Resp 18; Temp 98.1(O); Pulse Ox 100% on R/A; jb4 03:00 BP 105 / 72; Pulse 72; Resp 15; Pulse Ox 99% on R/A; jb4 11/27 20:08 Body Mass Index 25.82 (72.57 kg, 167.64 cm) bp ED Course: 11/27 19:51 Patient arrived in ED. mr 19:51 Ricky Antonio, DO is Private Physician. mr 20:08 Arm band placed on. bp 20:09 Triage completed. bp 20:16 Shoaib Sorenson, RN is Primary Nurse. jb4 20:22 Ovidio Weinstein MD is Attending Physician. sp4 20:27 Inserted saline lock: 22 gauge in left forearm, using aseptic technique. Blood jb4 collected. 20:27 Initial lab(s) drawn, by me, sent to lab. First set of blood cultures drawn by me. jb4 20:32 Second set of blood cultures drawn. Inserted saline lock: 20 gauge in left forearm, jb4 using aseptic technique. Blood collected. 20:46 Ptt, Activated Sent. jb4 20:46 Protime (+inr) Sent. jb4 20:46 Lactate w/ 2H reflex if indic. Sent. jb4 20:46 CMP Sent. jb4 20:46 CBC with Diff Sent. jb4 20:46 Blood Culture Adult (2) Sent. jb4 21:45 Patel cath inserted, using sterile technique, 16 Fr., by me, balloon inflated, to gravity drainage, clamped. urine specimen collected. Patient tolerated well. 21:57 Bed in low position. Call light in reach. Side rails up X 1. Client placed on mb9 continuous cardiac and pulse oximetry monitoring. NIBP monitoring applied. quality assurance monitor chassis on. 22:07 Urinalysis w/ reflexes Sent. wm 23:22 CT Chest, Abdomen, Pelvis - W/Contrast In Process Unspecified. EDMS 11/28 00:41 Initiated transfer with Nathalie at [facility]. rv1 01:58 Pt accepted to [facility] by Dr. Licona to [address] 26. rv1 03:35 No provider procedures requiring assistance completed. Patient transferred, IV remains jb4 in place. Administered Medications: 11/27 20:42 Drug: Ketorolac IVP 30 mg Route: IVP; Site: left forearm; mb9 21:17 Follow up: Response: No adverse reaction mb9 20:45 Drug: morphine IVP or IV 4 mg Route: IVP; Infused Over: 4 mins; Site: left antecubital; mb9 21:18 Follow up: Response: No adverse reaction mb9 20:45 Drug: Acetaminophen PO 1000 mg Route: PO; mb9 21:17 Follow up: Response: No adverse reaction mb9 20:55 Drug: NS 0.9% IV (30 ml/kg) 30 ml/kg Route: IV; Rate: bolus; Site: left antecubital; mb9 22:12 Drug: Piperacillin-Tazobactam IVPB 3.375 grams Route: IVPB; Infused Over: 60 mins; jb4 Site: left forearm; 22:13 Drug: vancoMYCIN IVPB 1 grams Route: IVPB; Infused Over: 2 hrs; Site: left forearm; jb4 22:17 Not Given (Patient Refused): Ondansetron IVP 4 mg IVP once; over 2 minutes jb4 23:43 Drug: Albumin IVPB 25 grams Volume: 100 ml; Route: IVPB; Site: left forearm; jb4 11/28 01:05 Drug: fentaNYL (PF) IVP 50 mcg Route: IVP; Site: left forearm; jb4 02:36 Drug: D5-NS IV 1000 ml Route: IV; Rate: 100 ml/hr; Site: left forearm; jb4 02:36 Drug: Piperacillin-Tazobactam IVPB 3.375 grams Route: IVPB; Infused Over: 60 mins; jb4 Site: left forearm; 02:55 Drug: HYDROmorphone IVP 1 mg Route: IVP; Site: left forearm; jb4 02:55 Drug: metoCLOPramide IVP 10 mg Route: IVP; Site: left forearm; jb4 02:55 Drug: Albumin IVPB 25 grams Volume: 100 ml; Route: IVPB; Site: left forearm; jb4 Medication: 11/27 21:56 VIS not applicable for this client. mb9 Outcome: 11/28 00:47 ER care complete, transfer ordered by sb4 01:59 ER care complete, transfer ordered by sp4 03:35 Transferred by ground EMS to [facility], Transfer form completed. X-rays sent jb4 w/ patient. 03:35 Condition: stable 03:35 Discharge instructions given to patient, family, Instructed on the need for transfer, Demonstrated understanding of instructions. 03:38 Patient left the ED. jb4 Signatures: Dispatcher [employer] Nasrin Knutson Shoaib, RN RN jb4 Linden Benites RN RN bp Marsh, Wendy wm Brown, Sophia, PANatachaC PANatachaC [email or web address] Nasrin Membreno RN RN mb9 Sarah George rv1 Ovidio Weinstein MD MD sp4 Corrections: (The following items were deleted from the chart) 08 21:58 21:55 General: Appears uncomfortable, Behavior is anxious, crying, mb9 mb9 21:58 21:55 Pain: Complains of pain in chest Pain does not radiate. Pain currently is 10 out mb9 of 10 on a pain scale. Quality of pain is described as throbbing, Pain began suddenly, Is continuous, mb9 21:58 21:55 Neuro: Baltazar Agitation-Sedation Scale (RASS): 0 - Alert and Calm Level of mb9 Consciousness is awake, alert, obeys commands, Oriented to person, place, time, situation, Appropriate for age mb9 21:58 21:55 Cardiovascular: Reports chest pain, shortness of breath, Heart tones S1 S2 mb9 present Patient's skin is warm and dry. Rhythm is sinus tachycardia mb9 21:58 21:55 Respiratory: Airway is patent Respiratory effort is even, unlabored, Respiratory mb9 pattern is regular, symmetrical, Breath sounds are clear bilaterally. mb9 21:58 21:55 GI: Abdomen is round non-distended, Bowel sounds present X 4 quads. Reports mb9 nausea, mb9 21:58 21:55 Derm: Skin is pink, warm \T\ dry. mb9 mb9 21:58 21:55 Musculoskeletal: Range of motion: intact in all extremities, mb9 mb9 08 00:00 08/05 20:08 Initial Sepsis Screen: Does the patient meet any 2 criteria? RR > 20 per bp min. Temp <36.0*C (96.8*F)) or > 38.3*C (100.9*F). Systolic BP < 90 mmHg. Yes Does the patient have a suspected source of infection? Yes: Acute abdominal pain If YES to both, name of provider notified: Ricky Antonio DO bp 11/28 03:35 03:00 No provider procedures requiring assistance completed. jb4 jb4 03:00 Patient transferred, IV remains in place. jb4 jb4
--- NOTE | 2022-11-28 00:47 | EDPHYS ---
Physician Documentation [facility] Name: Caroline Huizar Age: 47 yrs Sex: Female : 1975 Arrival Date: 11/27/2022 Time: 19:48 Bed 4 Private MD: Vandana Antonioh ED Physician Ovidio Weinstein HPI: 11/27 20:22 This 47 yrs old Black Female presents to ER via Wheelchair with complaints of Shoulder sp4 Pain, Fever. 20:22 47-year-old black female presents with a cute onset of fever starting on 2 sp4 days ago. Patient reported also feeling generalized weakness bilateral shoulder pain as well. Patient is generally managed at [facility] for her multiple medical problems. Patient has history of pulmonary embolism, hypertension, anxiety depression, sleep apnea and also persistent abdominal complaints secondary to gastric sleeve surgery approximately 2 years ago. Patient states she has a lost significant amount of weight since her gastric sleeve. Patient has a PICC line right arm that was placed at [facility] for infusion of IV fluids and electrolytes. Patient also has history of decubitus pressure sores. Besides fever patient denied chest pain or abdominal pain, and denied vomiting. . 11/28 00:52 Additional history patient states that most of her abdominal surgeries were done by Dr. dandre Claire. Dr. Claire apparently did several operations for total of 7 operations on the patient's with respect to her gastric sleeve and revision of gastric sleeve. Last surgery was in July 2022 at the [facility]. . 01:57 On further history collection patient apparently had gastric bypass surgery and also dandre duodenal switch procedure. . Historical: - Allergies: 11/27 20:06 Naproxen; bp - Home Meds: 20:06 bisacodyl 5 mg Oral tablet 2 tabs daily for constipation [Active]; cetirizine 10 mg bp Oral tablet 1 tab once [Active]; Eliquis 5 mg Oral tablet once [Active]; ertapenem 1 gram injection Recon Soln every 24 hours [Active]; Pepcid 20 mg Oral tablet every 12 hours [Active]; Percocet 5-325 mg Oral tablet every 6 hours for Pain [Active]; Protonix 40 mg Oral tablet, delayed release (enteric coated) 1 tab daily [Active]; - PMHx: 20:06 Anxiety; Gout; Depression; blood clots lungs; Hypertension; Sleep Apnea; bp - PSHx: 20:06 Cholecystectomy; gastric sleeve; LYMPHEDEMA; bp - Immunization history:: Adult Immunizations up to date. - Social history:: Smoking status: Patient denies any tobacco usage or history of. - Family history:: not pertinent. ROS: 22:01 Constitutional: Negative for chills, and weight loss, positive for fever, generalized sp4 weakness, and body aches 22:01 All other systems are negative. Exam: 22:01 Constitutional: This is a well developed, patient who is awake, alert, patient has sp4 signs of moderate to severe physical deconditioning, signs of moderate to severe weight loss, by lateral sacral and buttock decubitus ulcers. Patient had generalized weakness and had to be physically moved from wheelchair to the stretcher. There is right arm PICC line present on arrival. Patient has hypertensive on arrival and febrile Head/Face: Normocephalic, atraumatic. Eyes: Pupils equal round and reactive to light, extra-ocular motions intact. Lids and lashes normal. Conjunctiva and sclera are not injected. Cornea within normal limits. Periorbital areas with no swelling, redness, or edema. ENT: Nares patent. No nasal discharge, no septal abnormalities noted. Tympanic membranes are normal and external auditory canals are clear. Oropharynx with no redness, swelling, or masses, exudates, or evidence of obstruction, uvula midline. Mucous membranes moist. Neck: Trachea midline, no thyromegaly or masses palpated, and no cervical lymphadenopathy. Supple, full range of motion without nuchal rigidity, or vertebral point tenderness. Chest/axilla: Normal chest wall appearance and motion. Nontender with no deformity. No lesions are appreciated. Cardiovascular: Regular rate and rhythm with a normal S1 and S2. No gallops, murmurs, or rubs. Normal PMI, no JVD. No pulse deficits. Respiratory: Lungs have equal breath sounds bilaterally, clear to auscultation and percussion. No rales, rhonchi or wheezes noted. No increased work of breathing, no retractions or nasal flaring. Abdomen/GI: Soft, non-tender, with normal bowel sounds. No distension or tympany. No guarding or rebound. No evidence of tenderness throughout. Back: No spinal tenderness. No costovertebral tenderness. Bilateral sacral and buttock decubitus ulcers stage III-IV Skin: Warm, dry with normal turgor. Normal color with no rashes, no lesions, and no evidence of cellulitis. MS/ Extremity: Pulses equal, no cyanosis. Neurovascular intact. Full, normal range of motion. Moderate to severe bilateral muscular atrophy. Neuro: Awake and alert, GCS 15, oriented to person, place, time, and situation. Cranial nerves II-XII grossly intact. Motor strength 5/5 in all extremities. Sensory grossly intact. Psych: Awake, alert, with orientation to person, place and time. Behavior, mood, and affect are within normal limits 22:01 ECG was reviewed by the Attending Physician. EKG time 2111. There is normal sinus sp4 rhythm with a right axis deviation, small voltage QRS otherwise normal EKG no ectopy Vital Signs: 20:08 BP 82 / 64; Pulse 117; Resp 24; Temp 101.2; Pulse Ox 100% ; Weight 72.57 kg; Height 5 bp ft. 6 in. ; 21:50 BP 105 / 65; Pulse 84; Resp 16; Pulse Ox 100% on R/A; jb4 23:15 BP 104 / 66; Pulse 74; Resp 19; Temp 98.6(O); Pulse Ox 99% on R/A; jb4 11/28 00:10 BP 102 / 61; Pulse 71; Resp 16; Pulse Ox 100% on R/A; jb4 01:00 BP 114 / 76; Pulse 73; Resp 16; Pulse Ox 100% on R/A; jb4 02:00 BP 110 / 77; Pulse 70; Resp 18; Temp 98.1(O); Pulse Ox 100% on R/A; jb4 03:00 BP 105 / 72; Pulse 72; Resp 15; Pulse Ox 99% on R/A; jb4 11/27 20:08 Body Mass Index 25.82 (72.57 kg, 167.64 cm) bp MDM: 11/27 20:24 Patient medically screened. sp4 11/28 00:54 ED course: IMPRESSION: 1. Interval resolution of previously demonstrated anterior sp4 abdominal loculated ascites, with removal of drains. Suspected dehiscence of small bowel anastomosis in the left lower quadrant, with focal, loculated extraluminal focus of gas (axial images 79-92). 2. Focal consolidation in the lateral right lower lobe with right lower lobe superior segment tree-in-bud opacities, favoring infectious pneumonia. 3. Severe anasarca, though improved from reference exam. 4. Trace left greater than right bilateral effusions, markedly decreased compared to prior exam. 5. Periportal edema, almost certainly related to relative fluid overload given remainder of exam findings. Clinical correlation with liver function tests recommended. 6. Mild splenomegaly, new from reference exam. Electronically signed by: Gregorio Anna MD 11/27/2022 11:56 PM CDT . 01:54 Data reviewed: vital signs, nurses notes, old medical records, lab test result(s), EKG, sp4 radiologic studies. 01:54 Differential diagnosis: DJD, tendonitis, Fever, postoperative complication, pneumonia, sp4 sepsis. Consideration of Admission/Observation Patient was admitted/placed on observation. Escalation of care including admission/observation considered. Management of patient was discussed with the following: Petroleum Inspector: [facility] bariatric surgeon. ED course: 47-year-old female presents with fever also generalized weakness hypotension. Patient was resuscitated and is now hemodynamically stable. Patient CT revealed gastroenteric left lower quadrant bowel anastomosis that appear patent gastric bypass surgical changes are redemonstrated no signs of bowel obstruction. Trace left and right bilateral pleural effusion, focal consolidation right lower lobe with right lower lobe superior segment favoring infectious pneumonia, interval resolution of previous anterior abdominal loculated ascites with removal of drains. Suspected dehiscence of small bowel anastomosis in the left lower quadrant with focal loculated extraluminal focus of gas. Severe anasarca, periportal edema certainly related to relative fluid overload given remainder of exam findings. Clinical correlation with liver function test recommended.. 03:20 ED course: Patient was accepted by bariatric surgeon at [facility], sp4 Dr. Licona . 11/27 20:28 Order name: Blood Culture Adult (2) [facility] 11/27 20:28 Order name: CBC with Diff; Complete Time: 20:58 [facility] 11/27 20:28 Order name: CMP; Complete Time: 22:01 [facility] 11/27 20:28 Order name: Lactate w/ 2H reflex if indic.; Complete Time: 22:01 [facility] 11/27 20:28 Order name: Protime (+inr); Complete Time: 20:58 sp4 11/27 20:28 Order name: Ptt, Activated; Complete Time: 20:58 sp4 11/27 21:09 Order name: SARS RAPID; Complete Time: 22:48 sp4 11/27 21:09 Order name: Influenza Screen (a \T\ B); Complete Time: 22:48 sp4 11/27 21:10 Order name: Procalcitonin; Complete Time: 22:01 sp4 11/27 21:10 Order name: BNP; Complete Time: 22:01 sp4 11/27 21:52 Order name: Urinalysis w/ reflexes EDMS 11/27 21:57 Order name: Urine Microscopic Only; Complete Time: 22:48 EDMS 11/27 21:10 Order name: CT Chest, Abdomen, Pelvis - W/Contrast sp4 11/27 20:28 Order name: EKG; Complete Time: 20:29 sp4 11/27 20:28 Order name: Accucheck; Complete Time: 20:46 sp4 11/27 20:28 Order name: Cardiac monitoring; Complete Time: 20:46 sp4 11/27 20:28 Order name: Cath; Complete Time: 22:19 sp4 11/27 20:28 Order name: EKG - Nurse/Tech; Complete Time: 22:19 sp4 11/27 20:28 Order name: IV Saline Lock - Large Bore; Complete Time: 20:46 sp4 11/27 20:28 Order name: Labs collected and sent; Complete Time: 20:46 sp4 11/27 20:28 Order name: O2 Per Protocol; Complete Time: 20:46 sp4 11/27 20:28 Order name: O2 Sat Monitoring; Complete Time: 20:46 sp4 11/27 20:28 Order name: Vital Signs; Complete Time: 20:46 sp4 11/28 01:59 Order name: NPO; Complete Time: 02:36 sp4 EC/05 22:01 Rate is 91 beats/min. Rhythm is regular, Sinus Rhythm. Right axis deviation noted. SD sp4 interval is normal. QRS interval is normal. QT interval is normal. T waves are Normal. No ST changes noted. Clinical impression: No evidence of ischemia. Interpreted by me. Administered Medications: 20:42 Drug: Ketorolac IVP 30 mg Route: IVP; Site: left forearm; mb9 21:17 Follow up: Response: No adverse reaction mb9 20:45 Drug: morphine IVP or IV 4 mg Route: IVP; Infused Over: 4 mins; Site: left antecubital; mb9 21:18 Follow up: Response: No adverse reaction mb9 20:45 Drug: Acetaminophen PO 1000 mg Route: PO; mb9 21:17 Follow up: Response: No adverse reaction mb9 20:55 Drug: NS 0.9% IV (30 ml/kg) 30 ml/kg Route: IV; Rate: bolus; Site: left antecubital; mb9 22:12 Drug: Piperacillin-Tazobactam IVPB 3.375 grams Route: IVPB; Infused Over: 60 mins; jb4 Site: left forearm; 22:13 Drug: vancoMYCIN IVPB 1 grams Route: IVPB; Infused Over: 2 hrs; Site: left forearm; jb4 22:17 Not Given (Patient Refused): Ondansetron IVP 4 mg IVP once; over 2 minutes jb4 23:43 Drug: Albumin IVPB 25 grams Volume: 100 ml; Route: IVPB; Site: left forearm; jb4 11/28 01:05 Drug: fentaNYL (PF) IVP 50 mcg Route: IVP; Site: left forearm; jb4 02:36 Drug: D5-NS IV 1000 ml Route: IV; Rate: 100 ml/hr; Site: left forearm; jb4 02:36 Drug: Piperacillin-Tazobactam IVPB 3.375 grams Route: IVPB; Infused Over: 60 mins; jb4 Site: left forearm; 02:55 Drug: HYDROmorphone IVP 1 mg Route: IVP; Site: left forearm; jb4 02:55 Drug: metoCLOPramide IVP 10 mg Route: IVP; Site: left forearm; jb4 02:55 Drug: Albumin IVPB 25 grams Volume: 100 ml; Route: IVPB; Site: left forearm; jb4 Disposition Summary: 11/28/22 01:59 Transfer Ordered Transfer Location: [facility](11/28/22 01:59) sp4 Reason: Higher level of care(11/28/22 01:59) sp4 Condition: Stable(11/28/22 01:59) sp4 Problem: new(11/28/22 01:59) sp4 Symptoms: have improved(11/28/22 01:59) sp4 Accepting Physician: [facility] bariatric surgery(11/28/22 03:38) jb4 Diagnosis - Right lower lung organizing pneumonia. Fever, sepsis with septic shock sp4 - Small bowel anastomosis dehiscence, loculated extraluminal air left lower abdominal sp4 quadrant - Anasarca, left greater than right bilateral pleural effusions, periportal edema, sp4 Forms: - Medication Reconciliation Form sp4 - SBAR form sp4 Signatures: Dispatcher [employer] EDMS Shoaib Sorenson, RN RN jb4 Linden Benites, RN RN Rubi Broussard, PANatachaC PANatachaC sb4 Nasrin Membreno RN RN mb9 Ovidio Weinstein MD MD sp4 Corrections: (The following items were deleted from the chart) 11/27 21:56 20:29 Urinalysis+U.LAB.BRZ ordered. EDMS EDMS 22:03 20:22 . sp4 sp4 11/28 01:58 00:47 surgeon sb4 sp4 01:58 00:47 [facility] sb4 sp4 01:58 00:47 Higher level of care sb4 sp4 01:58 00:47 Fair sb4 sp4 01:58 00:47 new sb4 sp4 01:58 00:47 are unchanged sb4 sp4 01:58 00:47 Sepsis, unspecified organism sb4 sp4 03:38 01:59 [facility] bariatric surgery sp4 jb4
[2022-11-28] MEDS ORDERED: FENTANYL CITR 100 MCG/2 ML ONE (01:15)
[2022-11-28] MEDS ORDERED: D5 0.9 NS 1,000 ML IV ONE (02:33)
[2022-11-28] MEDS ORDERED: PIPERACIL/TAZO 3.375 GM VIAL IV ONE (02:33)
[2022-11-28] MEDS ORDERED: NA CHLORIDE 0.9% 100 ML ONE (02:33)
[2022-11-28] MEDS ORDERED: HYDROMORPHONE HCL 1 MG/ML INJ ONE (02:50)
[2022-11-28] MEDS ORDERED: ALBUMIN HUMAN 25% 100 ML IV ONE (02:50)
[2022-11-28] MEDS ORDERED: METOCLOPRAMIDE 10 MG/2mL INJ ONE (02:51)
[2022-11-28 04:11] VITALS: TEMP 98.1
[2022-11-28 04:12] VITALS: BP 105/72; O2SAT 99
--- NOTE | 2022-11-29 11:25 | RAD REPORT ---
EXAM DESCRIPTION: CT - Chest Abdomen Pelvis W Cont - 11/27/2022 11:21 pm ADDENDUM #1 Addendum: Dr. Anna discussed these potentially critical findings with Dr. Weinstein via telephone at approxima tely 00:58 hours EST on 11/28/2022. Electronically signed by: Gregorio Anna MD 11/28/2022 2:27 AM CDT End of Addendum TECHNIQUE: CT Chest, Abdomen and Pelvis With Intravenous Contrast CLINICAL HISTORY: The patient is 47 years old and is Female; fever, assess for pneumonia [facility] AIN TECHNIQUE: Axial computed tomography images of the chest, abdomen and pelvis with intravenous contra st. Sagittal and coronal reformatted images were created and reviewed. This CT exam was performed using one or more of the following dose reduction techniques: automated exposure control, adjustme nt of the mA and/or kV according to patient size, and/or use of iterative reconstruction technique. COMPARISON: 08/23/2022 CT chest abdomen pelvis without contrast FINDINGS: CHEST: LUNGS: Focal consolidation in the lateral right lower lobe with right lower lobe superior segment t ree-in-bud opacities, favoring infectious pneumonia. PLEURAL SPACE: Trace left greater than right bilateral effusions, markedly decreased compared to pr ior exam. No pneumothorax. HEART: Cardiomegaly. No significant pericardial effusion. No significant coronary artery calcific ations. ABDOMEN: LIVER: Mild periportal edema. No focal parenchymal abnormality. GALLBLADDER AND BILE DUCTS: Cholecystectomy. No ductal dilation. PANCREAS: Unremarkable. No ductal dilation. No mass. SPLEEN: Mild splenomegaly, new from reference exam. ADRENALS: Grossly unremarkable. No mass. KIDNEYS AND URETERS: Unremarkable. No hydronephrosis. No solid mass. STOMACH AND BOWEL: Gastroenteric and left lower quadrant bowel anastomoses appear patent. Gastric bypass surgical changes redemonstrated. No evidence of overt small or large bowel obstruction. PELVIS: APPENDIX: No findings to suggest acute appendicitis. BLADDER: Urinary bladder is decompressed around the indwelling Patel catheter and bulb. REPRODUCTIVE: Unremarkable as visualized. CHEST, ABDOMEN and PELVIS: INTRAPERITONEAL SPACE: Interval resolution of previously demonstrated anterior abdominal loculated ascites, with removal of drains. Questionable dehiscence of small bowel anastomosis in the left lower quadrant, with focal, loculated extraluminal focus of gas (axial images 79-92). No more distal pneumoperitoneum. No portal or mesenteric venous gas. Diffuse mesenteric edema with trace abdominopelvic free fluid, decreased from reference exam. BONES/JOINTS: No acute osseous abnormality. SOFT TISSUES: Severe anasarca, though improved from reference exam. Fat- and edema-containing umbil ical hernia. VASCULATURE: Grossly unremarkable. No aortic aneurysm. LYMPH NODES: Reactive appearing bilateral inguinal and external iliac lymph nodes. TUBES, LINES AND DEVICES: Right upper extremity PICC tip terminates near the superior cavoatrial ju nction. IMPRESSION: 1. Interval resolution of previously demonstrated anterior abdominal loculated ascites , with removal of drains. Suspected dehiscence of small bowel anastomosis in the left lower quadrant, with focal, loculated extraluminal focus of gas (axial images 79-92). 2. Focal consolidation in the lateral right lower lobe with right lower lobe superior segment tree- in-bud opacities, favoring infectious pneumonia. 3. Severe anasarca, though improved from reference exam. 4. Trace left greater than right bilateral effusions, markedly decreased compared to prior exam. 5. Periportal edema, almost certainly related to relative fluid overload given remainder of exam fi ndings. Clinical correlation with liver function tests recommended. 6. Mild splenomegaly, new from reference exam. Electronically signed by: Gregorio Anna MD 11/27/2022 11:56 PM CDT Due to temporary technical issues with the PACS/Fluency reporting system, reports are being signed by the in house radiologist without review as a courtesy to ensure prompt reporting. The interpreting r adiologist is fully responsible for the content of the report.
--- NOTE | 2022-11-29 13:04 | EKG ---
Test Date: 2022-11-27 Test Time: 21:12:13 Insulation Board Coater Operator: SARANYA MEASUREMENT RESULTS: Intervals: Rate: 91 OR: 136 QRSD: 78 QT: 350 QTc: 430 Casey: P: 83 OR: 136 QRS: 111 T: 36 INTERPRETIVE STATEMENTS: Normal sinus rhythm Right axis deviation Abnormal ECG Compared to ECG 08/23/2022 10:28:04 Right-axis deviation now present Prolonged QT interval no longer present Electronically Signed On 11-29-22 13:03:21 CDT by Harrison Cabrera
== END 2022-11-28 03:38 | disposition short-term general hospital (02) ==
LOC: ER 19:48
DX: J84.116 Cryptogenic organizing pneumonia (principal); A41.9 Sepsis, unspecified organism; R65.21 Severe sepsis with septic shock; T81.32XA Disruption of internal operation (surgical) wound, not elsewhere classified, initial encounter; K91.89 Other postprocedural complications and disorders of digestive system; K66.8 Other specified disorders of peritoneum; R60.1 Generalized edema; J90 Pleural effusion, not elsewhere classified; R60.0 Localized edema; I10 Essential (primary) hypertension; Z20.822 Contact with and (suspected) exposure to COVID-19; Z86.718 Personal history of other venous thrombosis and embolism; Z79.01 Long term (current) use of anticoagulants; Z88.5 Allergy status to narcotic agent
CPT/HCPCS: 93005; 87040 ×2; 85025; 36415; 87205 ×4; 85610; 83605; 85730; 80053; 84145; 83880; 87804 ×2; 71260; 74177; 51702; 99285; 87811; Q9967; J2765; J2543 ×2; J3010; J1170; P9047 ×2; J7042; J7050; J7030; 81003; 81015; 87077; 87186; J2405

== ENCOUNTER 2024-01-23 18:45 | Emergency (ER) | payer OTHER ==
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
[2024-01-23] MEDS ORDERED: CYCLOBENZAPRINE 10 MG TAB ONE (21:30)
[2024-01-23] MEDS ORDERED: HYDROCODONE/APAP 7.5/325 MG TAB ONE (21:30)
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
[2024-01-23 23:14] VITALS: BP 141/73; TEMP 97.4; O2SAT 100
== END 2024-01-23 22:39 | disposition home or self-care (01) ==
LOC: ER 18:45
DX: M54.2 Cervicalgia (principal); M54.50 Low back pain, unspecified; V49.40XA Driver injured in collision with unspecified motor vehicles in traffic accident, initial encounter
CPT/HCPCS: 72125; 72128; 72131; 99283